=== PATIENT | male | born 1975 | race Caucasian/White ===

== ENCOUNTER 2019-10-08 08:34 | Outpatient (CLI) | payer OTHER, SELFPAY ==
[2019-10-08 09:03] LABS: Creatinine Urine 166.58 mg/dL (40-278); MALB Creatinine Ratio 4.2 mg/g (0-30)
[2019-10-08 09:04] LABS: Hemoglobin A1C 6.9 % (<5.7)
[2019-10-08 09:58] LABS: Cholesterol 169 mg/dL (0-200); HDL Direct 40 mg/dL (40-60); Thyroid Stimulating Hormone 2.41 uIU/mL (0.36-3.74)
[2019-10-08 10:03] LABS: LDL Cholesterol Calculated 31 mg/dL (<130); Triglycerides 490 mg/dL (0-150)
[2019-10-08 10:04] LABS: LDL Cholesterol Direct 40 mg/dL (0-130)
== END 2019-10-08 08:35 | disposition home or self-care (01) ==
LOC: CHSLAB 08:39
PROVIDERS: PCP Family Medicine
DX: E11.65 Type 2 diabetes mellitus with hyperglycemia (principal)
CPT/HCPCS: 36415; 80061; 82043; 83036; 83721; 84443

== ENCOUNTER 2019-10-22 07:01 | Inpatient (IN) | payer OTHER, SELFPAY ==
[2019-10-22] VITALS (11 sets, daily range): BP systolic 140–161; BP diastolic 89–103; PULSE 79–96; RESP 16–26; TEMP 35.9–36.7; O2SAT 96–100; BMI 36.0
--- NOTE | 2019-10-22 | ECHO_ITS ---
Patient Info Name: Shawn Hutchison Burden Age: 44 years : 1975 Gender: Male Ht: 74 in Wt: 280 lbs BSA: 2.62 m2 HR: 78 bpm BP: 155 / 89 mmHg Technical Quality: Fair Exam Date: 10/22/2019 1:47 PM Exam Location: [facility] Pulmonary Exam Room: 241 Patient Status: Inpatient Admit Date: 10/22/2019 Staff Ordering Physician: Liam Chanel MD Shot Bagger: Chelsy Ayala RDCS Attending Provider: Wicho Bender MD Exam Type: CA echo dop color flow w con Study Info Indications - rt side weakness facial numbness abn mri Complete two-dimensional, color flow and Doppler transthoracic echocardiogram is performed with contrast to opacify the left ventricle and to improve the deliniation of the left ventricle endocardial borders. Contrast/Agitated Saline Contrast/Ag. Saline: Definity Amount: --- ml Administered By: Chantal Curran RN Summary 1. Left ventricular chamber dimension is normal. 2. Definity contrast administered improved wall motion interpretation. 3. Left ventricular systolic function is normal, estimated at 65-70%. 4. The left ventricular diastolic function is abnormal. 5. E/e' 20 is elevated. 6. The mitral valve has mildly calcified annulus. 7. There is trace tricuspid valve regurgitation. 8. No pulmonary hypertension, estimated pulmonary arterial systolic pressure is 38 mmHg. 9. There is trace pulmonic regurgitation. Left Ventricle E/e' 20 is elevated. Definity contrast administered improved wall motion interpretation. Left ventricular chamber dimension is normal. Left ventricular systolic function is normal, estimated at 65-70%. The left ventricular diastolic function is abnormal. Right Ventricle Right ventricular chamber dimension is normal. Right ventricular systolic function is normal. Left Atria Left atrial chamber dimension is normal. Right Atria Right atrial chamber dimension is normal. Aortic Valve The aortic valve is trileaflet. There is no aortic valve stenosis. There is no aortic valve regurgitation. Pulmonic Valve There is trace pulmonic regurgitation. Mitral Valve The mitral valve has mildly calcified annulus. There is no mitral valve stenosis. There is no mitral valve regurgitation. Tricuspid Valve There is trace tricuspid valve regurgitation. No pulmonary hypertension, estimated pulmonary arterial systolic pressure is 38 mmHg. Pericardium/Pleural There is no pericardial effusion. Inferior Vena Cava Normal inferior vena cava with >50% collapse upon inspiration consistent with normal right atrial pressure, 5 mmHg. Aorta The aortic root size at the sinus of Valsalva is normal. Left Ventricular Outflow Tract Name Value Normal LVOT 2D LVOT Diameter 2.07 cm LVOT Doppler LVOT Peak Gradient 5 mmHg LVOT Mean Gradient 4 mmHg LVOT VTI 24.70 cm LVOT VTI/AV VTI Ratio 0.76 LVOT Stroke Volume 82.76 ml LVOT CO 18.51 l/min
--- NOTE | ~2019-10-22 | XR_ITS ---
MODIFIED ESOPHAGRAM HISTORY: Dysphagia. TECHNIQUE: Modified barium esophagram was performed by speech pathologist under radiologist fluorosco pic guidance. This was recorded on tape. The exam was reviewed on 10/22/2019 17:53 CDT. The DAP for this procedure was 0.95 Gycm2. Fluoroscopy time is 1.1 minutes. FINDINGS: Lateral projection of the cervical spine demonstrates normal alignment. During oral and p haryngeal stage patient is unable to control thin liquids. There is reduced laryngeal elevation, tong ue base retraction, pharyngeal squeeze with vallecular and piriform sinus residue. There is laryngeal penetration placing patient at risk for aspiration.. IMPRESSION: 1: Laryngeal penetration. No definite aspiration is identified, although the patient is at increased risk. 2: Please refer to speech pathologist report for additional detail. Reviewed, dictated and finalized at location A. IMPRESSION: 1: Laryngeal penetration. No definite aspiration is identified, although the pa tient is at increased risk. 2: Please refer to speech pathologist report for additional detail.
--- NOTE | ~2019-10-22 | MR_ITS ---
EXAMINATION: MR brain/brain stem wo/w con DATE: 10/22/2019 12:11 INDICATION: Numbness and tingling. Right-sided deficit. TECHNIQUE: Magnetic resonance imaging (MRI) of the brain and brainstem was performed without and with 20 mL MultiHance intravenous contrast. Sequences included sagittal and axial T1-weighted FSE, axial diffusion-weighted FS EPI, axial T2*-weighted GRE, axial T2-weighted FLAIR Propeller, and axial T2-we ighted Propeller. Postcontrast sequences included axial and coronal T1-weighted FSE. Apparent diffusi on coefficient (ADC) maps were created. COMPARISON: Head CT 10/22/2019 FINDINGS: There is a small area of increased T2-weighted signal intensity in the left frontal lobe wh ite matter. There is no acute ischemic infarct or intracranial hemorrhage. The ventricles are normal in size. There is mild mucosal thickening in the paranasal sinuses. The orbits are normal. The mastoi d air cells are normal. IMPRESSION: 1. Small area of increased T2-weighted signal intensity in the left frontal lobe white matter, which likely represents chronic small vessel ischemic disease. Reviewed, dictated and finalized at location A. IMPRESSION: 1. Small area of increased T2-weighted signal intensity in the left frontal lob e white matter, which likely represents chronic small vessel ischemic disease.
--- NOTE | ~2019-10-22 | CT_ITS ---
EXAMINATION: CT brain wo con INDICATION: Sided numbness and tingling, headache COMPARISON: None TECHNIQUE: Standard unenhanced head CT. The dose-length product (DLP) was 681.00 mGy-cm. The mA was a djusted according to patient size. Iterative reconstruction technique was employed. FINDINGS: There is no intracranial hemorrhage, acute infarction, or abnormal mass lesion. The ventric les are normal. There is no abnormal mass effect or midline shift. The hernández-white matter differentiat ion is normal. The basal cisterns are patent. The orbits are normal. The paranasal sinuses, mastoids and calvarium are normal. IMPRESSION: 1. No acute intracranial abnormality. As per stroke protocol, I called these results to the Emergency Department, and discussed with Dr. Nicolás Moran MD at 0743 hours on 10/22/2019. Reviewed, dictated and finalized at location A. IMPRESSION: 1. No acute intracranial abnormality. As per stroke protocol, I called these results to the Emergency Department, and discussed with Dr. Cristina Moran MD at 0743 hours on 10/22/2019.
--- NOTE | ~2019-10-22 | CT_ITS ---
EXAMINATION: CTA brain carotid DATE: 10/22/2019 15:26 INDICATION: Facial numbness. TECHNIQUE: Computed tomographic angiography (CTA) of the head was performed without and with 100 mL O mnipaque-350 intravenous contrast. CTA of the neck was performed with intravenous contrast. Automated exposure control and iterative reconstruction technique were employed. The dose-length product was 1 808.02 mGy-cm. Maximum intensity projection and volume rendered 3D-reconstructions were created by john bonilla technologist on a separate workstation. COMPARISON: Head CT at 7:25 AM FINDINGS: HEAD CTA: There is no intracranial hemorrhage, acute infarction, or abnormal intracranial mass lesion . The ventricles are normal in size. There is a mucous retention cyst in left maxillary sinus. The or bits are normal. The mastoid air cells are normal. Left vertebral artery is dominant. There is no sig nificant stenosis of basilar artery or the posterior cerebral arteries. There is no significant steno sis of the intracranial internal carotid arteries or anterior or middle cerebral arteries. Anterior c ommunicating artery is normal. The posterior communicating arteries are normal. There is no aneurysm. NECK CTA: There are no pathologically enlarged lymph nodes. There is no significant stenosis of the v ertebral arteries. There is mild plaque in the proximal internal carotid arteries. There is 0% stenos is of the proximal right internal carotid artery relative to normal distal artery lumen diameter (NAVNEET CET criteria). There is 0% stenosis of the proximal left internal carotid artery relative to normal d istal artery lumen diameter. There is moderate cervical spondylosis. IMPRESSION: 1. Normal brain. 2. No aneurysm or significant intracranial arterial stenosis. 3. 0% stenosis of the proximal internal carotid arteries relative to normal distal artery lumen diame ters (NASCET criteria). Reviewed, dictated and finalized at location A. IMPRESSION: 1. Normal brain. 2. No aneurysm or significant intracranial arterial stenosis. 3. 0% stenosis of the proximal internal carotid arteries relative to normal dis tara artery lumen diameters (NASCET criteria).
--- NOTE | ~2019-10-22 | XR_ITS ---
EXAMINATION: XR chest 1V INDICATION: Stroke, right-sided weakness TECHNIQUE: AP view of the chest is obtained. COMPARISON: 08/10/2008 FINDINGS: The lungs are free of acute opacities. There is no pleural effusion or pneumothorax. The ca rdiomediastinal silhouette is normal. The visualized osseous structures are unremarkable. IMPRESSION: 1. No acute cardiopulmonary abnormality. Reviewed, dictated and finalized at location A.
--- NOTE | ~2019-10-22 | MR_ITS ---
EXAMINATION: MR brain IAC wo/w con DATE: 10/23/2019 17:00 INDICATION: Right facial weakness. Dysarthria. TECHNIQUE: Magnetic resonance imaging (MRI) of the brain, brainstem, and internal auditory canals was performed without and with 20 mL MultiHance intravenous contrast. Sequences included sagittal and ax ial T1-weighted FSE, axial diffusion-weighted FS EPI, axial T2*-weighted GRE, axial T2-weighted FLAIR Propeller, axial T2-weighted Propeller, small rbzcl-ih-gljj coronal FIESTA, small zzxel-hi-sqxw chaim nal T1-weighted FSE, and small rvdpg-gb-dhwn axial T1-weighted SPGR. Postcontrast sequences included axial T1-weighted FSE, small hbhso-ic-moiq coronal T1-weighted FSE, and small bmikf-dt-anfs axial T1- weighted SPGR. Apparent diffusion coefficient (ADC) maps were created. COMPARISON: Brain MRI 10/22/2019 FINDINGS: There is an acute infarct in right posterolateral medulla. There is a small area of increas ed T2-weighted signal intensity in the left frontal lobe white matter. There is no intracranial hemor rhage. The ventricles are normal in size. There is mild mucosal thickening in the paranasal sinuses. The orbits are normal. The mastoid air cells are normal. IMPRESSION: 1. Acute infarct in right posterolateral medulla in the expected distribution of right posterior infe rior cerebellar artery (PICA). 2. Small area of increased T2-weighted signal intensity in the left frontal lobe white matter, which likely represents chronic small vessel ischemic disease. Reviewed, dictated and finalized at location A. IMPRESSION: 1. Acute infarct in right posterolateral medulla in the expected distribution o f right posterior inferior cerebellar artery (PICA). 2. Small area of increased T2-weighted signal intensity in the left frontal lob e white matter, which likely represents chronic small vessel ischemic disease.
--- NOTE | ~2019-10-22 | XR_ITS ---
EXAMINATION: XR chest 1V portable DATE: 10/24/2019 06:34 INDICATION: Cough. TECHNIQUE: A single frontal view of the chest was obtained. COMPARISON: Chest single view 10/22/2019 FINDINGS: There is mild atelectasis in the lower lung zones. No pleural effusion or pneumothorax. The heart size is normal. IMPRESSION: 1. Mild atelectasis in the lower lung zones. Reviewed, dictated and finalized at location A.
--- NOTE | ~2019-10-22 | XR_ITS ---
EXAMINATION: XR barium swallow modified DATE: 10/26/2019 14:27 INDICATION: Dysphagia. TECHNIQUE: The patient was given barium-containing material of multiple consistencies to swallow by raman velez speech pathologist while I performed fluoroscopy. Dose-area product was 2.488 Gy-cm2. 2.7 minutes fluoroscopy time FINDINGS: Oral Preparatory Stage: Within functional limits Oral Stage: Within functional limits Pharyngeal Phase: There is mild vallecular and piriform sinus residue. No penetration or aspiration. Cervical/Esophageal Stage: Mild cricopharyngeus muscle dysfunction IMPRESSION: Modified esophagram findings as above. Please refer to the speech [facility]. Reviewed, dictated and finalized at [facility]. Reviewed, dictated and finalized at [facility]. IMPRESSION: Modified esophagram findings as above. Please refer to the speech t herapy report for specific recommendations.
--- NOTE | 2019-10-22 07:09 | ED.NAVMDI ---
HPI - Nausea/Vomiting/Diarrhea General Chief complaint: Nausea/Vomiting/Diarrhea Stated complaint: NUMBNESS,TINGLING Time Seen by Provider: 10/22/19 07:06 Source: patient, family and EMS Mode of arrival: EMS Limitations: no limitations History of Present Illness HPI Narrative: Patient is a 44-year-old male with a history of type 2 diabetes, hypertension who presents for evaluation of right-sided weakness, slurred speech. Patient also reports he has had difficulty walking and reports he has been leaning to the right. Patient states he notices symptoms at approximately 2 in the morning when he tried to go to the bathroom. He had trouble walking, was diaphoretic and nauseated. Patient has no history of stroke in the past. At first, patient states that he wanted to ensure that this was not his diabetes, patient did recently have his metformin increased per his . Otherwise, no one sick at home. No recent sick contacts. No cough, congestion, chest pain or shortness of breath. Patient denies numbness in his lower extremities or weakness in his hands. Per , blood sugar this morning was in the 240s. Related Data Home Medications Medication Instructions Recorded Confirmed glimepiride 1 mg tablet 1 mg HS 09/09/19 10/22/19 rosuvastatin 5 mg tablet 5 mg PO HS 09/09/19 10/22/19 escitalopram oxalate 20 mg PO HS 10/22/19 10/22/19 metformin 1,000 mg PO BID 10/22/19 10/22/19 moweyykdtzyw-otx-wzyr-FA-vit K 1 tablet PO HS 10/22/19 10/22/19 [Adults Multivitamin] verapamil 180 mg PO HS 10/22/19 10/22/19 Allergies Allergy/AdvReac Type Severity Reaction Status Date / Time No Known Allergies Allergy Verified 10/22/19 10:29 Review of Systems Review of Systems: Narrative: CONSTITUTIONAL: Denies fever, chills, reports feeling sweaty EYES: Denies visual changes, redness, or discharge. ENT: Denies rhinorrhea, congestion, sore throat, or otalgia. CARDIOVASCULAR: Denies chest pain, palpitations, or edema. RESPIRATORY: Denies cough or dyspnea. GASTROINTESTINAL: Denies abdominal pain, reports nausea and vomiting GENITOURINARY: Denies dysuria or hematuria. SKIN: Denies rash or itching. MUSCULOSKELETAL: Denies back pain, joint pain, or myalgia. NEUROLOGIC: Reports history of chronic headache, reports right-sided facial numbness, weakness PMFSH Past Medical History Medical History Anxiety Diabetes HLD (hyperlipidemia) Hypertension Normal colonoscopy (~2015) Family History Family History Father Hypertension Diabetes mellitus Heart disease Hyperlipidemia Other malignant neoplasm without specification of site Grandparent Carcinoma of colon Mother Hyperlipidemia Hypertension Diabetes mellitus Heart disease Sibling Diabetes mellitus Social History Social History Smoking status: Never smoker Alcohol intake: never Substance use: never Substance use type: does not use Gender identity (if verbalized by the patient): Male Spiritual care concerns: No Exam Narrative: Exam Narrative: GENERAL: Awake, alert, diaphoretic HEAD: Normocephalic, atraumatic. EYES: PERRLA and EOMI. ENT: Nares clear, no rhinorrhea or epistaxis. Mucous membranes moist. NECK: Supple. CHEST: No respiratory distress, breathing even and non labored HEART: Regular rate, sinus rhythm ABDOMEN:Non distended, non tender EXTREMITIES: Normal range of motion. No edema. SKIN: Warm, dry, no rash. NEURO:. EOMs intact without nystagmus. Mild right-sided facial droop noted. It does spare the forehead. Grimace droops to the right. Intact sensation in face. Hearing intact bilaterally. Shoulder shrug intact. Strength 5/5 bilateral upper extremities. Strength 5/5 bilateral lower extremities. Reflexes 2+ patellar. Heel to thomas intact bilaterally, slowed response on the right. Ambulatory exam defe
--- NOTE | 2019-10-22 07:19 | ECG_ITS ---
Measurements Intervals [place] Rate: 72 P: 42 WA: 192 QRS: 18 QRSD: 90 T: 30 QT: 424 QTc: 466 Interpretive Statements SINUS RHYTHM WITH SINUS ARRHYTHMIA ST ELEVATION INI ANTEROLATERAL LEADS, PROBABLY EARLY REPOLARIZATION BASELINE ARTIFACT- I, II, III, AVR, AVL, AVF, V1 BORDERLINE ECG Electronically Signed On 10-22-2019 11:10:13 CDT by Lucho Tavarez D.O.
[2019-10-22 07:52] LABS: Alveolar/Arterial O2 Gradient 17.7 mmHg; Base Excess ABG -0.6 mEq/l (+/-2.0); Carboxyhemoglobin 0.9 % THb (0-2.0); Fractional Inspired Oxygen 21 %; HCO3 ABG 24.5 mEq/l (22.0-26.0); Methemoglobin ABG 0.3 %THb (0-1.5); Oxygen Saturation ABG 95.9 % (95.0-100.0); Oxyhemoglobin 95.1 % THb (90.0-100.0); PCO2 ABG 41.8 mmHg (35.0-45.0); Reduced Hemoglobin 3.7 %THb (0-5.0); Total Hemoglobin 15.7 g/dL (12.0-18.0); pH ABG 7.385 (7.350-7.450)
[2019-10-22 07:53] LABS: Device ROOM AIR; Modified Allen's Test Pass; Site Drawn RIGHT RADIAL
[2019-10-22 07:54] LABS: Glucose Point of Care 228 (65-105)
[2019-10-22] MEDS: SODIUM CHLORIDE 0.9% IV 1,000 ML 999 ML IV CONT ×2 (08:05→08:12)
[2019-10-22] MEDS: ONDANSETRON INJ 4 MG/2 ML VIAL IV PUSH (08:05)
[2019-10-22 08:08] LABS: Basophils Percent Auto 0.5 % (0.2-1.2); Eosinophils Absolute Auto 0.1 K/mm3 (0-0.3); Eosinophils Percent Auto 0.6 % (0-4.4); Hematocrit 42.5 % (42.0-52.0); Hemoglobin 15.4 g/dL (14.0-18.0); Immature Granulocyte Absolute 0.03 K/mm3 (0.00-0.031); Immature Granulocyte Percent A 0.3 % (0-0.5); Lymphocytes Absolute Auto 2.68 K/mm3 (0.9-3.2); Lymphocytes Percent Auto 30.7 % (18.3-44.2); Mean Corpuscular HGB Conc 36.2 g/dl (32-36); Mean Corpuscular Hemoglobin 32.2 pg (26-34); Mean Corpuscular Volume 88.9 fl (80-100); Mean Platelet Volume 9.5 fl (7.4-10.4); Monocytes Absolute Auto 0.5 K/mm3 (0.1-0.6); Neutrophils Absolute Auto 5.4 K/mm3 (1.3-6.7); Neutrophils Percent Auto 61.9 % (45.5-73.1); Platelet Count Result 256 k/mm3 (150-375); Red Blood Count 4.78 M/mm3 (4.6-6.20); Red Cell Distribution Width 11.3 % (11.5-14.5); White Blood Count 8.7 K/mm3 (4.5-10.0)
[2019-10-22 08:21] LABS: Alanine Aminotransferase 32 U/L (4-50); Albumin Level 4.7 g/dL (3.5-5.1); Alkaline Phosphatase 116 U/L (38-126); Aspartate Amino Transferase 31 U/L (17-59); Bilirubin,Total 0.5 mg/dL (0.2-1.3); Blood Urea Nitrogen 11 mg/dL (9-20); Calcium 9.2 mg/dL (8.4-10.2); Carbon Dioxide 25 mmol/L (22-30); Chloride 102 mmol/L (98-107); Estimated CRCL calculation 227 ml/min; Estimated Glomerular Filt Rate > 60; Glucose 228 mg/dL (75-110); Magnesium 1.9 mg/dL (1.6-2.3); Phosphorus 2.3 mg/dL (2.5-4.5); Potassium 3.7 mmol/L (3.4-5.0); Sodium 137 mmol/L (137-145)
[2019-10-22 08:25] LABS: Beta-Hydroxybutyrate/Acetoacetate 0.21 mmol/L (0.02-0.27)
[2019-10-22 08:31] LABS: INR 0.9; Prothrombin Time 11.8 Seconds (11.1-14.7)
[2019-10-22 08:32] LABS: Partial Thromboplastin Time 23.9 SECONDS (22.3-36.8)
[2019-10-22 08:32] LABS: Troponin I < 0.012 ng/mL (0.000-0.034)
--- NOTE | 2019-10-22 09:06 | PC.NURSE ---
pt unable to void x 2 attempts. RN explained straight cath, pt accepting at this time.
[2019-10-22] MEDS: ASPIRIN 81 MG CHEWABLE TABLET 324 MG PO (09:29)
[2019-10-22 09:48] LABS: Add Urine Microscopic? YES; Appearance Urine Clear (Clear); Bilirubin Urine Negative (Negative); Blood Urine Negative (Negative); Color Urine Straw (Yellow); Glucose Urine UA 3+ mg/dL (Negative); Ketones Urine Trace mg/dL (Negative); Leukocyte Esterase Ur Negative LEU/UL (Negative); Mucus Urine Rare /lpf; Nitrate Urine Negative (Negative); Protein Urine Negative (Negative); RBC Urine 0-2 /hpf (0-2); Specific Grav Ur 1.018 (1.001-1.035); Urobilinogen Urine Negative mg/dL (<2.0); WBC Urine 0-3 /hpf
--- NOTE | 2019-10-22 09:48 | PC.NURSE ---
rn at bedside for straight cath.
--- NOTE | 2019-10-22 10:03 | PC.NURSE ---
RN report given to Sam Parisi.
--- NOTE | 2019-10-22 10:24 | ADMGEN ---
This patient, Shawn Burden, was admitted to Medical Room 241-. Patient/family oriented to hospital policies and general routines including ID bracelet, bed and alarms, visiting hours, pain management, procedures, bathroom and other care routines, personal items, smoking policy, room service/diet, and visiting hours. Valuables list has been completed. Information on how to activate the Rapid Response Team has been discussed. Patient/Family are encouraged to report perceived risks to care and to ask questions if they do not understand what they are told or what they should do.
[2019-10-22] MEDS: LACTATED RINGERS 1,000 ML 125 ML IV CONT ×2 (10:50→20:59)
--- NOTE | 2019-10-22 11:17 | PC.NURSE ---
Patient to MRI per stretcher. IV saline locked. Consent signed and on chart.
--- NOTE | 2019-10-22 12:01 | PM.IMHP ---
H&P: HPI History of Present Illness Chief complaint: right sided dysarthria,right sideded facial droop Narrative: Shawn Burden is a 44yo male with a history of DM and HTN here for evaluation of right-sided symptoms and slurred speech. Patient has hx of diabetes diagnosis in November with A1c of 13. Was on metformin and glipizide but glipizide had been decreased because A1c dropped to 5 in February[address] He sees Dr[address] Negro for his diabetes in [place]. Last A1c was 6.9 in September. Metformin was increased a few days prior to this admission. He also has hypertriglyceridemia last value was 490. Patient also has a history of chronic migraines. There is concern this may be related to anxiety. He was started on Lexapro about 5 years ago and his has noted that his headaches have improved over that time period. Patient has not seen Neurology for his headaches. On patient did have a headache yesterday evening. He was able to attend a ball game and got home around 11:00 p.m.. He stayed up for few hours after getting home to decorate his dtr birthday cake. His went to bed. Patient slept on the couch. Woke up around 2:00 a.m. felt right facial numbness. He did not think much of this and returned to bed. Around 6:00 a.m. his noted that the patient looked not well. When he stood he was ?drifting? to the right side. He had difficulty walking. She noted slurred speech. He denies any weakness in his arms or legs but more of discoordination. He continued to have the right sided facial numbness. Right facial droop also noted by the . 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 Because of the symptoms patient brought to the emergency room for evaluation. Glucose normal at home In the emergency room, patient's blood pressure was 159/103. He is afebrile. CT of the brain was normal. Lab workup also was within normal limits. EKG reviewed showing ST elevation most likely early repoleraization. Was given aspirin, IV fluids and Zofran. He was admitted for further care. On my 1st visit to the room patient was down for an MRI. I talked with his who provided some of the above-mentioned history. Return to the room and spoke with the patient. He states that he was leaning to the right. Denies any vision changes. He denies any odynophagia or dysphagia but since admission, has noted the patient does appear to be choking with oral intake. Patient did have some nausea vomiting but no diarrhea or abdominal pain. Nausea has resolved. About a week ago his yard was sprayed from mosquitos. He was out in the yard short time after that and developed a splotchy rash in his lower extremities and felt burning sensation in his skin. He took a shower. His rash resolved. No for symptoms up until today. He denies any numbness or tingling in his hands or feet. With exam, he was noted to have nystagmus. He does state that with the exam he does see double vision in left lateral view. No tick bites recently Review of Systems Review of Systems: All systems reviewed & are unremarkable except as noted in HPI and below PMFSH Past Medical History Medical History (Updated 10/23/19 @ 15:01 by Pedro Rutledge MD) Anxiety Diabetes HLD (hyperlipidemia) Hypertension Normal colonoscopy (~2015) SERENA (obstructive sleep apnea) noncomplaint Family History Family History Father Hypertension Diabetes mellitus Heart disease Hyperlipidemia Other malignant neoplasm without specification of site Grandparent Carcinoma of colon Mother Hyperlipidemia Hypertension Diabetes mellitus Heart disease Sibling Diabetes mellitus Social History Social History (Updated 10/22/19 @ 15:27 by Wicho Bender MD) Social History: Patient is lifelong nonsmoker. No drug use. Rare alcohol use. He is a full code. Nominates his to be the individual would make medical decisions for him if he is not able. Smoking status: Never sm
--- NOTE | 2019-10-22 12:20 | PC.NURSE ---
Patient return from MRI.
[2019-10-22 12:36] LABS: Glucose Point of Care 173 (65-105)
[2019-10-22] MEDS: PERFLUTREN LIPID MICROSPHERES 1.5 ML VIAL DILUTED TO 10 ML TOTAL VOLUME IV PUSH (14:20)
[2019-10-22] MEDS: ENOXAPARIN 40 MG/0.4 ML SYRINGE SUB-Q (16:32)
[2019-10-22 18:02] LABS: Glucose Point of Care 145 (65-105)
--- NOTE | 2019-10-22 18:06 | CONS_ITS ---
DATE OF CONSULTATION: 10/22/2019 HISTORY OF PRESENT ILLNESS: A 44-year-old right-handed male has been admitted to [facility] through the emergency room for the complaints of right-sided dysarthria with facial droop. In addition to ongoing history of: 1. Type 2 diabetes mellitus. 2. Hypertension. 3. Hyperlipidemia. 4. Anxiety. 5. With no history of smoking or drinking alcohol. MEDICATIONS: At the time of admission to the hospital, the patient was receivin. Glimepiride 1 mg at night. 2. Rosuvastatin 5 mg at night. 3. Escitalopram 20 mg at night. 4. Metformin 1000 twice a day. 5. Multivitamin with iron 1 tablet at night. 6. Verapamil 180 mg at night. ALLERGIES: HISTORY OF NOT ALLERGIC TO ANY SPECIFIC MEDICATION. PHYSICAL EXAMINATION: ABDOMEN: Soft with no organomegaly. NEUROLOGICAL: He was awake, alert, cooperative, in no obvious acute distress. Speech was not dysphasic, no dysarthric, no dysphonic. Pupils round, regular, very mildly anisocoric. Extraocular movements full with no evidence of nystagmus. Facial sensation intact. Face symmetrical. Tongue midline. Uvula midline. Motor examination revealed him to have drift of the right upper extremity. His reflexes being 1 to 2+ at the biceps, triceps, knees, and ankles. Plantar response was downgoing. There was no evidence of gross cerebellar deficit on bhgbka-ix-muzj-to-finger. LABORATORY STUDIES: Evaluation up until now included CBC, which revealed WBC of 8.7, hemoglobin 15.4, and platelet count of 256. INR of 0.9 with APTT 23.9. ABG is normal. Basic metabolic panel normal with creatinine of 0.50, glucose 228. Hemoglobin A1c 6.9 with phosphorus 2.3. Triglyceride elevated 490 and 3+ glycosuria. Had an MRI of the brain, which was just reported, which revealed him to have a small area of T2 signal intensity in the left frontal lobe white matter, which represent the chronic small-vessel ischemic change according to the radiologist. Chest x-ray is negative and the head CT scan, which was done prior to the MRI is also normal. IMPRESSION: Most likely TIA. At this stage, he has subtle drift of the right upper extremity with that particular thing has anything to do with a small area of signal intensity in the left frontal lobe is unclear, but he is being treated for the TIA versus the reversible ischemic neurological deficit. At this stage, he is receiving the aspirin 81 mg daily, which will I add to Plavix 75 mg daily as well for the next 3 weeks and in the meantime, other medication will be continued as such. We will also obtain the CTA, if he has not had that done last time and also the echocardiogram. LANE MERCADO M.D. BUSINESS OFFICE TECHNICIAN BUSINESS OFFICE TECHNICIAN D Jeri MT: Stevie
[2019-10-22 23:58] LABS: Glucose Point of Care 126 (65-105)
[2019-10-23] VITALS (14 sets, daily range): BP systolic 132–164; BP diastolic 84–110; PULSE 74–91; RESP 12–21; TEMP 36.2–36.9; O2SAT 97–100
--- NOTE | 2019-10-23 | ECHO_ITS ---
Patient Info Name: Shawn Hutchison Burden Age: 44 years : 1975 Gender: Male Ht: 74 in Wt: 281 lbs BSA: 2.62 m2 HR: 85 bpm BP: 150 / 98 mmHg Heart Rhythm: Sinus Rhythm Technical Quality: Good Exam Date: 10/23/2019 2:02 PM Exam Location: [facility] Patient Status: Inpatient Admit Date: 10/22/2019 Staff Ordering Physician: Wicho Bender MD Co Director: Taras Bryant RDCS Attending Provider: Wicho Bender MD Exam Type: CA echo limited w bubble study Study Info Indications 436.0 - CVA Limited two-dimensional transthoracic echocardiogram is performed with agitated saline. Contrast/Agitated Saline Contrast/Ag. Saline: Agitated Saline Amount: 18.00 ml Administered By: Chantal Curran RN Existing IV Access: Yes History/Risk Factors Stroke, HTN, DM, R-sided weakness. Summary 1. Limited echo to assess atrial septum. 2. Agitated saline injection with and without valsalva maneuver opacified right sided cardiac chambers without shunting to left sided cardiac chambers. Therefore no patent forament ovale or atrial septal defect based on these findings. 3. Intact interatrial septum visualized by 2D and agitated saline imaging. Atrial Septum Limited echo to assess atrial septum. Agitated saline injection with and without valsalva maneuver opacified right sided cardiac chambers without shunting to left sided cardiac chambers. Therefore no patent forament ovale or atrial septal defect based on these findings. Intact interatrial septum visualized by 2D and agitated saline imaging. Report Signatures
[2019-10-23] MEDS: ONDANSETRON INJ 4 MG/2 ML VIAL IV PUSH (02:44)
[2019-10-23] MEDS: LACTATED RINGERS 1,000 ML 125 ML IV CONT ×2 (04:35→14:58)
[2019-10-23 05:29] LABS: Alanine Aminotransferase 28 U/L (4-50); Albumin Level 4.2 g/dL (3.5-5.1); Alkaline Phosphatase 71 U/L (38-126); Aspartate Amino Transferase 26 U/L (17-59); Bilirubin,Total 0.6 mg/dL (0.2-1.3); Blood Urea Nitrogen 12 mg/dL (9-20); Calcium 8.8 mg/dL (8.4-10.2); Carbon Dioxide 26 mmol/L (22-30); Chloride 100 mmol/L (98-107); Estimated CRCL calculation 228 ml/min; Estimated Glomerular Filt Rate > 60; Glucose 169 mg/dL (75-110); Sodium 134 mmol/L (137-145)
[2019-10-23 06:33] LABS: Thyroid Stimulating Hormone Reflex 0.983 uIU/mL (0.465-4.68)
[2019-10-23 06:43] LABS: Glucose Point of Care 150 (65-105)
--- NOTE | 2019-10-23 09:22 | PCSTNOTE ---
Please refer to the Modified Barium Swallow Evaluation in the EMR.
--- NOTE | 2019-10-23 09:22 | PCSTNOTE ---
Communication evaluation completed and speech/language skills are judged to be within normal limits. Patient complains of double vision and therefore reading and writing were not addressed at this time.
[2019-10-23] MEDS: ENOXAPARIN 40 MG/0.4 ML SYRINGE SUB-Q ×2 (09:55→20:14)
[2019-10-23] MEDS: ASPIRIN 300 MG SUPPOSITORY RECTAL (09:55)
[2019-10-23 12:41] LABS: Glucose Point of Care 125 (65-105)
--- NOTE | 2019-10-23 14:58 | WPDNEUROPN ---
Progress Note: A&P Assessment and Plan (1) Dysphagia: Code(s): R13.10 - Dysphagia, unspecified Status: Acute (2) SERENA (obstructive sleep apnea): Code(s): G47.33 - Obstructive sleep apnea (adult) (pediatric) Status: Acute (3) Dysarthria: Code(s): R47.1 - Dysarthria and anarthria Status: Acute (4) HLD (hyperlipidemia): Qualifiers: Hyperlipidemia type: unspecified Qualified Code(s): E78.5 - Hyperlipidemia, unspecified Code(s): E78.5 - Hyperlipidemia, unspecified Status: Acute (5) Anxiety: Code(s): F41.9 - Anxiety disorder, unspecified Status: Acute (6) Diabetes: Qualifiers: Diabetes mellitus type: type 2 Diabetes mellitus prison insulin use: without termite control 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 Bender and also his in quite a bit of a detail all option risk in the benefits were detailed to her we will move him to the IMU for close monitoring with frequent neuro checks and repeat MRI of the brain with and without contrast and continue with the aspirin Lovenox as he is unable to swallow and we cannot give him Plavix I told his if she is uncomfortable will be more than happy to transfer her or transfer him to a facility she prefers to at this point both and agree to be monitored here in a close monitoring setting Review of Systems Review of Systems: All systems reviewed & are unremarkable except as noted in HPI and below Exam Const: General: comfortable and no acute distress HENMT: General nose exam: Normal nares present Mouth: Yes moist mucous membranes Eyes: General: appearance normal, both eyes and all related structures Neck: Neck: supple and no JVD Resp: Effort & Inspection: normal respiratory effort Auscultation: clear to auscultation bilaterally Cardio: Rate: regular rate Rhythm: regular rhythm GI: Auscultation: normal bowel sounds Skin: General skin exam: normal color and no rashes or lesions noted Neuro: Other: the patient is awake and alert well oriented time place person there is no aphasia but he is clearly dysarthric dysphonia and has gait ataxia and Romberg test is positive Extrem: General: normal to inspection Psych: Mental Status: mental status grossly normal Objective Data Vital Signs Vital Signs: Vital Signs - 24 hr 10/22/19 16:00 10/22/19 20:00 10/22/19 22:00 Temperature 36.7 C Pulse Rate 96 83 82 Respiratory Rate 21 H Blood Pressure 155/90 H Pulse Oximetry 100 10/23/19 00:00 10/23/19 04:00 10/23/19 06:00 Temperature 36.2 C L Pulse Rate 77 80 86 Respiratory Rate 21 H Blood Pressure 144/84 H Pulse Oximetry 100 10/23/19 08:00 10/23/19 12:00 10/23/19 14:00 Temperature 36.2 C L Pulse Rate 78 88 84 Respiratory Rate 18 Blood Pressure 150/110 H Pulse Oximetry 99 10/23/19 14:34 Temperature Pulse Rate Respiratory Rate Blood Pressure 164/100 H Pulse Oximetry Intake/Output Intake/Output: Intake & Output 10/20/19 10/21/19 10/22/19 10/23/19 23:59 23:59 23:59 23:59 Intake Total 3000 1000 Output Total 1300 925 Balance 1700 75 Meds/Results Medications: Active Medications Generic Name Dose Route Start Last Admin Trade Name Freq PRN Reason Stop Dose Admin Acetaminophen 650 mg 10/22/19 09:19 Tylenol Tablet PO Q4H PRN Mild Pain (1-3) or Fever
--- NOTE | 2019-10-23 15:05 | PM.IMPN ---
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 Still could be MG. MRI of the brain 10/21 showing small area of increased T2-weighted signal intensity in the left frontal lobe white matter, which likely represents chronic small vessel ischemic disease. CTA of the head/neck showing no acute findings. Echo showing EF 70% with abnormal diastolic dysfunction. Bubble study showing intact septum. Discussed with Dr Rutledge. Plan to repeat MRI brain. Discussed with radiology and appropriate imaging was performed to better image the brainstem. Repeat MRI brain showing acute infarct in right posterolateral medulla in the expected distribution of right posterior inferior cerebellar artery (PICA). Continue rectal ASA. Discussed with patient and family. All questions were answered (2) Dysphagia: Code(s): R13.10 - Dysphagia, unspecified Status: Acute Assessment and Plan: MBS 10/21 showing laryngeal penetration but no definite aspiration is identified, although the patient is at increased risk. Patient seen by ST and currently NPO due to dysphagia. Speech therapy working with patient. May need NGT feeding. (3) Facial droop: Code(s): R29.810 - Facial weakness Status: Acute Assessment and Plan: As above (4) Dysarthria: Code(s): R47.1 - Dysarthria and anarthria Status: Acute Assessment and Plan: Patient with more bulbar symptoms. As above. (5) Hypertension: Qualifiers: Hypertension type: essential hypertension Qualified Code(s): I10 - Essential (primary) hypertension Code(s): I10 - Essential (primary) hypertension Status: Acute Assessment and Plan: BP reviewed on 10/23/19. BP elevated but allowing for permissive HTN. Home verapamil on hold. Hydralazine available as needed. (6) Diabetes: Qualifiers: Diabetes mellitus complication status: without complication Diabetes mellitus [facility] insulin use: without [facility] use Diabetes mellitus type: type 2 Qualified Code(s): E11.9 - Type 2 diabetes mellitus without complications Code(s): E11.9 - Type 2 diabetes mellitus without complications Status: Acute Assessment and Plan: A1c 6.9 recently. Continue Accu-Cheks with sliding scale protocol. Hypoglycemia protocol available as needed. (7) Anxiety: Code(s): F41.9 - Anxiety disorder, unspecified Status: Acute Assessment and Plan: Mood stable. Lexapro on hold due to dysphagia. (8) HLD (hyperlipidemia): Qualifiers: Hyperlipidemia type: unspecified Qualified Code(s): E78.5 - Hyperlipidemia, unspecified Code(s): E78.5 - Hyperlipidemia, unspecified Status: Acute Assessment and Plan: Patient mostly with hypertriglyceridemia. This is being monitored by his doctor. (9) SERENA (obstructive sleep apnea): Code(s): G47.33 - Obstructive sleep apnea (adult) (pediatric) Status: Acute Assessment and Plan: Noncompliant with treatment. Subjective Date/time seen: 10/23/19 15:05 Interval history: 44yo male with DM and HTN here for dysphagia, dysphonia and dysarthria concerning for brainstem CVA. Date of service 10/23/19: Persistent cough productive of clear sputum. Has suction at beds. No CP or SOB. Still with diplopia. Minimal gag with suction (he was educated about not doing deep suction). Exam Narrative: Exam Narrative: AF 164/100 84 18 99% Gen -NARD HEENT - mild right facial droop, mild right depressed palate. roving eye movements. PERRL. EOMI intact. Chest - scattered rhonchi with transmitted upper airway breath sounds, nml RR CV - RRR S1/S2. Tele showing no dysrhythmias Abd - So
--- NOTE | 2019-10-23 15:07 | PC.NURSE ---
1300 Pt taking shower with assistance, sitting in shower chair. Pt stated he was bending forward and washing himself and began vomiting. stated his face was very flushed and he became hot. Pt quickly assessed, dressed, and returned to bed. Pt stated he was feeling better once returned to bed. Oral care performed.
[2019-10-23 19:05] LABS: Glucose Point of Care 132 (65-105)
--- NOTE | 2019-10-23 19:24 | PC.NURSE ---
This patient, Shawn Burden, was received from [ ] on 10/23/19 at 1750 . Personal belongings list checked and signed. Patient/family oriented to unit policies and routines
[2019-10-23 23:51] LABS: Glucose Point of Care 150 (65-105)
[2019-10-24] VITALS (14 sets, daily range): BP systolic 142–157; BP diastolic 91–103; PULSE 72–94; RESP 16–18; TEMP 35.9–36.9; O2SAT 97–100
[2019-10-24] MEDS: LACTATED RINGERS 1,000 ML 125 ML IV CONT ×4 (00:12→23:46)
[2019-10-24 05:53] LABS: Glucose Point of Care 134 (65-105)
--- NOTE | 2019-10-24 09:54 | PM.IMPN ---
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 MRI of the brain 10/21 showing small area of increased T2-weighted signal intensity in the left frontal lobe white matter, which likely represents chronic small vessel ischemic disease. CTA of the head/neck showing no acute findings. Echo showing EF 70% with abnormal diastolic dysfunction. Bubble study showing intact septum. Repeat MRI brain showing acute infarct in right posterolateral medulla in the expected distribution of right posterior inferior cerebellar artery (PICA). Continue rectal ASA. Discussed with patient and family. TRC consult. Continue PT/OT/ST. (2) Dysphagia: Code(s): R13.10 - Dysphagia, unspecified Status: Acute Assessment and Plan: MBS 10/21 showing laryngeal penetration but no definite aspiration is identified, although the patient is at increased risk. Patient seen by ST and currently NPO due to dysphagia. Speech therapy working with patient. May need NGT feeding. (3) Facial droop: Code(s): R29.810 - Facial weakness Status: Acute Assessment and Plan: As above (4) Dysarthria: Code(s): R47.1 - Dysarthria and anarthria Status: Acute Assessment and Plan: Patient with more bulbar symptoms. As above. (5) Hypertension: Qualifiers: Hypertension type: essential hypertension Qualified Code(s): I10 - Essential (primary) hypertension Code(s): I10 - Essential (primary) hypertension Status: Acute Assessment and Plan: BP reviewed on 10/24/19. BP mildly elevated but allowing for permissive HTN. Home verapamil on hold. Hydralazine available as needed. (6) Diabetes: Qualifiers: Diabetes mellitus type: type 2 Diabetes mellitus meat stuffer insulin use: without senior care use Diabetes mellitus complication status: without complication Qualified Code(s): E11.9 - Type 2 diabetes mellitus without complications Code(s): E11.9 - Type 2 diabetes mellitus without complications Status: Acute Assessment and Plan: A1c 6.9 recently. Continue Accu-Cheks with sliding scale protocol. Hypoglycemia protocol available as needed. (7) Anxiety: Code(s): F41.9 - Anxiety disorder, unspecified Status: Acute Assessment and Plan: Mood stable. Lexapro on hold due to dysphagia. (8) HLD (hyperlipidemia): Qualifiers: Hyperlipidemia type: unspecified Qualified Code(s): E78.5 - Hyperlipidemia, unspecified Code(s): E78.5 - Hyperlipidemia, unspecified Status: Acute Assessment and Plan: Patient mostly with hypertriglyceridemia. This is being monitored by his doctor. (9) SERENA (obstructive sleep apnea): Code(s): G47.33 - Obstructive sleep apnea (adult) (pediatric) Status: Acute Assessment and Plan: Noncompliant with treatment. Subjective Date/time seen: 10/24/19 09:54 Interval history: 44yo male with DM and HTN here for dysphagia, dysphonia and dysarthria concerning for brainstem CVA. Date of service 10/24/19: No nausea or vomiting. No CP or palpations. No SOB. Cough and secretins are better. Still with diplopia. Exam Narrative: Exam Narrative: AF 157/98 76 16 100% ra Gen -NARD HEENT - very mild right facial droop, roving eye movements but improved, EOMI intact. Chest - CTA bilaterally, nml RR CV - RRR S1/S2. Tele showing no dysrhythmias Abd - Soft, NT/ND, Positive BS Ext - No pedal edema. Neuro - Alert and oriented. No focal weakness. Tracking is better Psych - Nml mood and affect Skin - Warm and dry. Objective Data Vital Signs Vital Signs: Vital Signs - 24 hr 10/23/19 12:00 10/23/19 13:30 10/23/19 14:00 Temper
[2019-10-24] MEDS: ASPIRIN 300 MG SUPPOSITORY RECTAL (10:27)
[2019-10-24] MEDS: ENOXAPARIN 40 MG/0.4 ML SYRINGE SUB-Q ×2 (10:27→21:09)
[2019-10-24 12:31] LABS: Glucose Point of Care 114 (65-105)
--- NOTE | 2019-10-24 14:33 | WPDNEUROPN ---
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, unspecified Status: Acute (2) Dysphagia: Code(s): R13.10 - Dysphagia, unspecified Status: Acute (3) SERENA (obstructive sleep apnea): Code(s): G47.33 - Obstructive sleep apnea (adult) (pediatric) Status: Acute (4) Dysarthria: Code(s): R47.1 - Dysarthria and anarthria Status: Acute (5) HLD (hyperlipidemia): Qualifiers: Hyperlipidemia type: unspecified Qualified Code(s): E78.5 - Hyperlipidemia, unspecified Code(s): E78.5 - Hyperlipidemia, unspecified Status: Acute (6) Anxiety: Code(s): F41.9 - Anxiety disorder, unspecified Status: Acute (7) Diabetes: Qualifiers: Diabetes mellitus type: type 2 Diabetes mellitus shelter insulin use: without long term care administrator use Diabetes mellitus complication status: without complication Qualified Code(s): E11.9 - Type 2 diabetes mellitus without complications Code(s): E11.9 - Type 2 diabetes mellitus without complications Status: Acute (8) Hypertension: Qualifiers: Hypertension type: essential hypertension Qualified Code(s): I10 - Essential (primary) hypertension Code(s): I10 - Essential (primary) hypertension Status: Acute Additional Plan discussed with his and the patient all option risk in the benefits were detailed we will continue the present medical management he would most likely need at least for the short brief time and nasogastric tube feeding and I will defer it to the hospitalist for that at that point we can certainly start the Plavix along with the rectal aspirin he is receiving Review of Systems Review of Systems: All systems reviewed & are unremarkable except as noted in HPI and below Exam Const: General: comfortable and no acute distress HENMT: General nose exam: Normal nares present Mouth: Yes moist mucous membranes Eyes: General: appearance normal, both eyes and all related structures Neck: Neck: supple and no JVD Resp: Effort & Inspection: normal respiratory effort Auscultation: clear to auscultation bilaterally Cardio: Rate: regular rate Rhythm: regular rhythm GI: Auscultation: normal bowel sounds Skin: General skin exam: normal color and no rashes or lesions noted Neuro: Other: patient is awake alert well oriented follows all commands he has dysphagia dysphonia and dysarthria right-sided sensory symptoms and gait ataxia related to the medullary infarct Extrem: General: normal to inspection Psych: Mental Status: mental status grossly normal Objective Data Vital Signs Vital Signs: Vital Signs - 24 hr 10/23/19 14:34 10/23/19 16:00 10/23/19 17:22 Temperature 36.6 C Pulse Rate 91 86 Respiratory Rate 12 Blood Pressure 164/100 H 149/93 H Pulse Oximetry 99 10/23/19 20:00 10/23/19 20:56 10/23/19 22:00 Temperature 36.9 C Pulse Rate 85 85 75 Respiratory Rate 18 18 Blood Pressure 132/89 Pulse Oximetry 99 99 10/23/19 23:49 10/24/19 00:00 10/24/19 00:57 Temperature 36.9 C Pulse Rate 74 74 80 Respiratory Rate 18 18 Blood Pressure 143/103 H Pulse Oximetry 100 100 10/24/19 01:56 10/24/19 04:00 10/24/19 06:00 Temperature 36.3 C L Pulse Rate 72 94 85 Respiratory Rate 18 Blood Pressure 151/96 H Pulse Oximetry 100 10/24/19 08:00 10/24/19 10:00 10/24/19 12:00 Temperature 36.1 C L 36.3 C L Pulse Rate 79 72 78 Respiratory Rate 16 18 Blood Pressure 157/98 H 156/91 H Pulse Oximetry 100 98 Intake/Output Intake/Output: Intake & Output 10/21/19 10/22/19 10/23/19 10/24/19 23:59 23:59 23:59 23:59 Intake Total 3000 3100 872 Output Total 1300 1325 1345 Balance 1700 1770 -384 Meds/Results Medications: Active Medications Generic Name Dose Route Start Last Admin Trade Name Freq PRN Reason Stop Dose Admin Acetaminophen 650 mg 10/22/19 09:19 Tyle
[2019-10-24 18:22] LABS: Glucose Point of Care 100 (65-105)
[2019-10-24 23:53] LABS: Glucose Point of Care 123 (65-105)
[2019-10-25] VITALS (12 sets, daily range): BP systolic 143–165; BP diastolic 50–99; PULSE 69–88; RESP 16–20; TEMP 36.2–36.8; O2SAT 100
[2019-10-25 05:02] LABS: Hematocrit 40.3 % (42.0-52.0); Hemoglobin 14.2 g/dL (14.0-18.0); Mean Corpuscular HGB Conc 35.2 g/dl (32-36); Mean Corpuscular Hemoglobin 32.4 pg (26-34); Mean Platelet Volume 9.5 fl (7.4-10.4); Platelet Count Result 236 k/mm3 (150-375); Red Blood Count 4.38 M/mm3 (4.6-6.20); Red Cell Distribution Width 11.5 % (11.5-14.5); White Blood Count 8.3 K/mm3 (4.5-10.0)
[2019-10-25 05:18] LABS: Albumin Level 4.1 g/dL (3.5-5.1); Blood Urea Nitrogen 13 mg/dL (9-20); Calcium 8.9 mg/dL (8.4-10.2); Carbon Dioxide 28 mmol/L (22-30); Chloride 98 mmol/L (98-107); Estimated CRCL calculation 192 ml/min; Estimated Glomerular Filt Rate > 60; Glucose 131 mg/dL (75-110); Phosphorus 2.7 mg/dL (2.5-4.5); Potassium 3.3 mmol/L (3.4-5.0); Sodium 133 mmol/L (137-145)
[2019-10-25 06:30] LABS: Glucose Point of Care 102 (65-105)
[2019-10-25] MEDS: LACTATED RINGERS 1,000 ML 125 ML IV CONT (08:00)
[2019-10-25] MEDS: ENOXAPARIN 40 MG/0.4 ML SYRINGE SUB-Q ×2 (08:01→20:07)
[2019-10-25] MEDS: ASPIRIN 300 MG SUPPOSITORY RECTAL (08:01)
--- NOTE | 2019-10-25 11:32 | PCSTNOTE ---
Speech therapy spoke with nursing staff this morning regarding pt.'s dysphagia and need for a repeat modified barium swallow study this week. Pt. participated in ST on 10/24/19 and tolerated small open cup sips of thin liquids without displaying any overt s/s of aspiration; however, silent aspiration cannot be ruled out at bedside. Upon initial MBS on 10/22/19, pt. was unable to trigger a pharyngeal swallow. Swallow on 10/24/19 appeared delayed (2-3 seconds) and weak, with multiple swallows utilized indicating possible laryngeal residue. Swallow progress was discussed with pt. during tx, as well as the possibility of a repeat MBS to advance pt. from NPO status. Pt. was indicated understanding and agreement with this plan.
[2019-10-25 12:05] LABS: Glucose Point of Care 103 (65-105)
--- NOTE | 2019-10-25 12:08 | PM.IMPN ---
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 MRI of the brain 10/21 showing small area of increased T2-weighted signal intensity in the left frontal lobe white matter, which likely represents chronic small vessel ischemic disease. CTA of the head/neck showing no acute findings. Echo showing EF 70% with abnormal diastolic dysfunction. Bubble study showing intact septum. Repeat MRI brain 10/22 showing acute infarct in right posterolateral medulla in the expected distribution of right posterior inferior cerebellar artery (PICA). Continue rectal ASA. TRC consult. Continue PT/OT/ST. (2) Dysphagia: Code(s): R13.10 - Dysphagia, unspecified Status: Acute Assessment and Plan: MBS 10/21 showing laryngeal penetration but no definite aspiration is identified, although the patient is at increased risk. Patient seen by ST and currently NPO due to dysphagia. Speech therapy working with patient. Discussed with speech therapy. She feels that patient's swallowing ability has improved but still weak and recommends a modified barium swallow tomorrow. Will start TPN overnight in hopes of transitioning to oral intake tomorrow after swallow study. (3) Facial droop: Code(s): R29.810 - Facial weakness Status: Acute Assessment and Plan: As above. (4) Dysarthria: Code(s): R47.1 - Dysarthria and anarthria Status: Acute Assessment and Plan: Patient with more bulbar symptoms. As above. (5) Hypertension: Qualifiers: Hypertension type: essential hypertension Qualified Code(s): I10 - Essential (primary) hypertension Code(s): I10 - Essential (primary) hypertension Status: Acute Assessment and Plan: BP reviewed on 10/25/19. BP mildly elevated but allowing for permissive HTN. Home verapamil on hold. Hydralazine available as needed. 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 Glucose reviewed on 10/25/2019. Continue Accu-Cheks with sliding scale protocol. Hypoglycemia protocol available as needed. (7) Anxiety: Code(s): F41.9 - Anxiety disorder, unspecified Status: Acute Assessment and Plan: Mood stable. Lexapro on hold due to dysphagia. (8) HLD (hyperlipidemia): Qualifiers: Hyperlipidemia type: unspecified Qualified Code(s): E78.5 - Hyperlipidemia, unspecified Code(s): E78.5 - Hyperlipidemia, unspecified Status: Acute Assessment and Plan: Patient mostly with hypertriglyceridemia. This is being monitored by his doctor. Plan to resume Crestor when able. (9) SERENA (obstructive sleep apnea): Code(s): G47.33 - Obstructive sleep apnea (adult) (pediatric) Status: Acute Assessment and Plan: Noncompliant with treatment. Subjective Date/time seen: 10/25/19 12:08 Interval history: 44yo male with DM and HTN here for dysphagia, dysphonia and dysarthria concerning for brainstem CVA. Date of service 10/24/19: Feels well. Having a headache today. Decreased amount of secretions. No coughing or choking. Using a walker to ambulate because of unsteady gait. He states he leans to the right. Exam Narrative: Exam Narrative: AF 143/97 77 16 100% ra Gen -NARD HEENT - roving eye movements but improved, tracks well Chest - CTA bilaterally, nml RR CV - RRR S1/S2. Tele showing no dysrhythmi
[2019-10-25] MEDS: AMINO ACIDS 4.25%/D5W/LYTES/CA 2,000 ML 80 ML IV CONT (14:29)
[2019-10-25] MEDS: FAT EMULSIONS IV 20% 250 ML 20.8 ML IVPB (14:36)
[2019-10-25 17:52] LABS: Glucose Point of Care 125 (65-105)
--- NOTE | 2019-10-25 18:35 | WPDNEUROPN ---
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, unspecified Status: Acute (2) Dysphagia: Code(s): R13.10 - Dysphagia, unspecified Status: Acute (3) SERENA (obstructive sleep apnea): Code(s): G47.33 - Obstructive sleep apnea (adult) (pediatric) Status: Acute (4) Facial droop: Code(s): R29.810 - Facial weakness Status: Acute (5) Dysarthria: Code(s): R47.1 - Dysarthria and anarthria Status: Acute (6) HLD (hyperlipidemia): Qualifiers: Hyperlipidemia type: unspecified Qualified Code(s): E78.5 - Hyperlipidemia, unspecified Code(s): E78.5 - Hyperlipidemia, unspecified Status: Acute (7) Anxiety: Code(s): F41.9 - Anxiety disorder, unspecified Status: Acute (8) Diabetes: Qualifiers: Diabetes mellitus type: type 2 Diabetes mellitus adjunct faculty for medical terminology insulin use: without adjunct faculty for medical terminology use Diabetes mellitus complication status: without complication Qualified Code(s): E11.9 - Type 2 diabetes mellitus without complications Code(s): E11.9 - Type 2 diabetes mellitus without complications Status: Acute (9) Hypertension: Qualifiers: Hypertension type: essential hypertension Qualified Code(s): I10 - Essential (primary) hypertension Code(s): I10 - Essential (primary) hypertension Status: Acute Additional Plan modified barium swallow is planned for tomorrow as I am told I am hoping that he will be a good candidate for our acute rehab program post that because his need up by speech therapy PT OT and gait training Discussed with the and the patient and answered their questions Review of Systems Review of Systems: All systems reviewed & are unremarkable except as noted in HPI and below Exam Const: General: comfortable and no acute distress HENMT: General nose exam: Normal nares present Mouth: Yes moist mucous membranes Eyes: General: appearance normal, both eyes and all related structures Neck: Neck: supple and no JVD Resp: Effort & Inspection: normal respiratory effort Auscultation: clear to auscultation bilaterally Cardio: Rate: regular rate Rhythm: regular rhythm GI: Auscultation: normal bowel sounds Neuro: Other: patient is awake alert will oriented has dysphonia and dysarthria dysphagia and right-sided weakness which is improving Extrem: General: normal to inspection Psych: Mental Status: mental status grossly normal Objective Data Vital Signs Vital Signs: Vital Signs - 24 hr 10/24/19 19:58 10/24/19 20:00 10/24/19 22:00 Temperature 36.9 C Pulse Rate 77 76 78 Respiratory Rate 18 Blood Pressure 155/92 H Pulse Oximetry 97 10/24/19 23:44 10/25/19 00:00 10/25/19 02:00 Temperature 35.9 C L Pulse Rate 83 77 69 Respiratory Rate 18 Blood Pressure 142/98 H Pulse Oximetry 97 10/25/19 04:00 10/25/19 06:00 10/25/19 08:00 Temperature 36.2 C L 36.5 C Pulse Rate 85 88 76 Respiratory Rate 20 18 Blood Pressure 149/83 H 150/99 H Pulse Oximetry 100 100 10/25/19 10:00 10/25/19 12:00 10/25/19 14:00 Temperature 36.3 C L Pulse Rate 83 78 75 Respiratory Rate 16 Blood Pressure 143/97 H Pulse Oximetry 100 10/25/19 16:00 10/25/19 17:00 Temperature 36.6 C Pulse Rate 75 81 Respiratory Rate 16 Blood Pressure 165/91 H Pulse Oximetry 100 Intake/Output Intake/Output: Intake & Output 10/22/19 10/23/19 10/24/19 10/25/19 23:59 23:59 23:59 23:59 Intake Total 3000 3100 2872 2045 Output Total 1300 1325 3495 2480 Balance 1700 4540 -311 -149 Meds/Results Medications: Active Medications Generic Name Dose Route Start Last Admin Trade Name Freq PRN Reason Stop Dose Admin Acetaminophen 650 mg 10/22/19 09:19 Tylenol Tablet PO Q4H PRN Mild Pain (1-3) or Fever Aspirin 81 mg 10/23/19 08:00 Aspirin Chewable PO DAILY@0800 [facility] Aspirin 300 mg 10/13
[2019-10-26] VITALS (15 sets, daily range): BP systolic 127–165; BP diastolic 81–107; PULSE 78–102; RESP 16–18; TEMP 35.6–36.9; O2SAT 96–100; BMI 35.4
[2019-10-26 00:26] LABS: Glucose Point of Care 136 (65-105)
[2019-10-26 04:55] LABS: Basophils Percent Auto 0.3 % (0.2-1.2); Eosinophils Absolute Auto 0.1 K/mm3 (0-0.3); Eosinophils Percent Auto 0.8 % (0-4.4); Immature Granulocyte Absolute 0.02 K/mm3 (0.00-0.031); Immature Granulocyte Percent A 0.3 % (0-0.5); Lymphocytes Absolute Auto 1.97 K/mm3 (0.9-3.2); Lymphocytes Percent Auto 26.5 % (18.3-44.2); Mean Corpuscular HGB Conc 36.6 g/dl (32-36); Mean Corpuscular Hemoglobin 32.8 pg (26-34); Mean Corpuscular Volume 89.7 fl (80-100); Mean Platelet Volume 9.3 fl (7.4-10.4); Monocytes Absolute Auto 0.7 K/mm3 (0.1-0.6); Monocytes Percent Auto 8.9 % (2.6-8.5); Neutrophils Absolute Auto 4.7 K/mm3 (1.3-6.7); Neutrophils Percent Auto 63.2 % (45.5-73.1); Platelet Count Result 259 k/mm3 (150-375); Red Blood Count 4.57 M/mm3 (4.6-6.20); Red Cell Distribution Width 11.2 % (11.5-14.5); White Blood Count 7.4 K/mm3 (4.5-10.0)
[2019-10-26 05:06] LABS: Prothrombin Time 12.6 Seconds (11.1-14.7)
[2019-10-26 05:07] LABS: Partial Thromboplastin Time 30.9 SECONDS (22.3-36.8)
[2019-10-26 05:10] LABS: Alanine Aminotransferase 34 U/L (4-50); Albumin Level 4.3 g/dL (3.5-5.1); Alkaline Phosphatase 74 U/L (38-126); Aspartate Amino Transferase 39 U/L (17-59); Bilirubin,Total 0.6 mg/dL (0.2-1.3); Blood Urea Nitrogen 15 mg/dL (9-20); Calcium 9.1 mg/dL (8.4-10.2); Carbon Dioxide 27 mmol/L (22-30); Chloride 99 mmol/L (98-107); Estimated CRCL calculation 226 ml/min; Estimated Glomerular Filt Rate > 60; Glucose 146 mg/dL (75-110); Magnesium 2.2 mg/dL (1.6-2.3); Phosphorus 3.8 mg/dL (2.5-4.5); Potassium 3.2 mmol/L (3.4-5.0); Sodium 135 mmol/L (137-145); Triglycerides 489 mg/dL (<150)
[2019-10-26 05:17] LABS: Transferrin 247 mg/dL (206-381)
[2019-10-26 05:57] LABS: Glucose Point of Care 138 (65-105)
[2019-10-26] MEDS: ENOXAPARIN 40 MG/0.4 ML SYRINGE SUB-Q ×2 (08:11→20:29)
[2019-10-26] MEDS: FAT EMULSIONS IV 20% 250 ML 20.8 ML IVPB (08:12)
[2019-10-26] MEDS: ASPIRIN 300 MG SUPPOSITORY RECTAL (08:24)
--- NOTE | 2019-10-26 09:34 | WPDNEUROPN ---
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, unspecified Status: Acute (2) Dysphagia: Code(s): R13.10 - Dysphagia, unspecified Status: Acute (3) SERENA (obstructive sleep apnea): Code(s): G47.33 - Obstructive sleep apnea (adult) (pediatric) Status: Acute (4) Facial droop: Code(s): R29.810 - Facial weakness Status: Acute (5) Dysarthria: Code(s): R47.1 - Dysarthria and anarthria Status: Acute (6) HLD (hyperlipidemia): Qualifiers: Hyperlipidemia type: unspecified Qualified Code(s): E78.5 - Hyperlipidemia, unspecified Code(s): E78.5 - Hyperlipidemia, unspecified Status: Acute (7) Anxiety: Code(s): F41.9 - Anxiety disorder, unspecified Status: Acute (8) Diabetes: Qualifiers: Diabetes mellitus type: type 2 Diabetes mellitus assistant terminal manager insulin use: without assistant terminal manager use Diabetes mellitus complication status: without complication Qualified Code(s): E11.9 - Type 2 diabetes mellitus without complications Code(s): E11.9 - Type 2 diabetes mellitus without complications Status: Acute Additional Plan continues with therapy Exam Const: General: cooperative, healthy appearing, comfortable, no acute distress, well developed, alert and awake Nutritional Appearance: average body habitus Orientation/consciousness: patient oriented x3 Limitations: no limitations HENMT: Head: normal to inspection Mouth: Yes Normal oral and palatal mucosa present Eyes: General: appearance normal, both eyes and all related structures Visual Keating: normal visual keating by confrontation Alignment and Position: alignment normal Periorbital: periorbital findings normal Eyelids: eyelids normal Conjunctivae: conjunctivae normal Sclera: sclerae normal Cornea: corneas normal Pupils: Equal, round and reactive pupils present, Pupils normal by confrontation and Pupil size comments EOM: EOMs intact bilaterally Direct Ophthalmoscopy: normal light reflex Neck: Neck: full ROM Resp: Effort & Inspection: normal respiratory effort Auscultation: clear to auscultation bilaterally Cardio: Rate: regular rate Rhythm: regular rhythm GI: Auscultation: normal bowel sounds Skin: General skin exam: no rashes or lesions noted Neuro: General: patient oriented x3 Speech: normal speech Psych: Appearance: grossly normal Objective Data Vital Signs Vital Signs: Vital Signs - 24 hr 10/25/19 10:00 10/25/19 12:00 10/25/19 14:00 Temperature 36.3 C L Pulse Rate 83 78 75 Respiratory Rate 16 Blood Pressure 143/97 H Pulse Oximetry 100 10/25/19 16:00 10/25/19 17:00 10/25/19 20:00 Temperature 36.6 C 36.8 C Pulse Rate 75 81 75 Respiratory Rate 16 18 Blood Pressure 165/91 H 149/50 H Pulse Oximetry 100 100 10/25/19 22:00 10/26/19 00:00 10/26/19 02:00 Temperature 36.5 C Pulse Rate 85 79 92 Respiratory Rate 18 Blood Pressure 127/92 H Pulse Oximetry 97 10/26/19 03:57 10/26/19 03:58 10/26/19 04:00 Temperature 36.9 C Pulse Rate 80 80 85 Respiratory Rate 18 18 Blood Pressure 165/91 H Pulse Oximetry 100 96 10/26/19 06:00 10/26/19 08:00 Temperature 36.4 C Pulse Rate 78 84 Respiratory Rate 16 Blood Pressure 134/97 H Pulse Oximetry 100 Intake/Output Intake/Output: Intake & Output 10/23/19 10/24/19 10/25/19 10/26/19 23:59 23:59 23:59 23:59 Intake Total 3100 2872 2145 196 Output Total 1325 3495 2955 1125 Balance 1775 -623 -810 -929 Meds/Results Medications: Active Medications Generic Name Dose Route Start Last Admin Trade Name Kari PRN Reason Stop Dose Admin Acetaminophen 650 mg 10/22/19 09:19 Tylenol Tablet PO Q4H PRN Mild Pain (1-3) or Fever Aspirin 81 mg 10/23/19 08:00 Aspirin Chewable PO DAILY@0800 [facility] Aspirin 300 mg 10/23/19 09:00 10/26/19 08:24 Aspirin Suppository RECTAL 300 mg
[2019-10-26 12:07] LABS: Glucose Point of Care 154 (65-105)
--- NOTE | 2019-10-26 14:22 | PCNSR ---
On 10/26/19, the student, Liam Murray, provided care and completed [facility] documentation on this patient. I have reviewed the student's documentation and agree with the findings.
--- NOTE | 2019-10-26 14:58 | PCSTNOTE ---
Please refer to the Modified Barium Swallow Evaluation in the EMR.
[2019-10-26] MEDS: CLOPIDOGREL BISULFATE 75 MG TABLET PO (15:50)
[2019-10-26 16:18] LABS: Glucose Point of Care 131 (65-105)
--- NOTE | 2019-10-26 18:06 | PM.IMPN ---
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 MRI of the brain 10/21 showing small area of increased T2-weighted signal intensity in the left frontal lobe white matter, which likely represents chronic small vessel ischemic disease. CTA of the head/neck showing no acute findings. Echo showing EF 70% with abnormal diastolic dysfunction. Bubble study showing intact septum. Repeat MRI brain 10/22 showing acute infarct in right posterolateral medulla in the expected distribution of right posterior inferior cerebellar artery (PICA). Patient has passed the modified barium swallow. Change to oral aspirin. Resume statin. Continue PT/OT/ST. He has been accepted to the [facility] and we were awaiting insurance authorization but not forthcoming today. Hopefully patient to can be moved to the [facility] tomorrow. (2) Dysphagia: Code(s): R13.10 - Dysphagia, unspecified Status: Acute Assessment and Plan: MBS 10/21 showing laryngeal penetration but no definite aspiration is identified, although the patient is at increased risk. Patient seen by ST and made NPO due to dysphagia. Speech therapy working with patient. Patient's swallowing ability has improved overall. MBS completed today. Discussed with ST: the patient passed MBS and able now to have a soft, level 6 diet with thin liquids. Stop TPN. Start diet. Change meds to oral route. Continue speech therapy. (3) Facial droop: Code(s): R29.810 - Facial weakness Status: Acute Assessment and Plan: As above. (4) Dysarthria: Code(s): R47.1 - Dysarthria and anarthria Status: Acute Assessment and Plan: Patient with more bulbar symptoms. As above. (5) Hypertension: Qualifiers: Hypertension type: essential hypertension Qualified Code(s): I10 - Essential (primary) hypertension Code(s): I10 - Essential (primary) hypertension Status: Acute Assessment and Plan: BP reviewed on 10/26/19. BP mildly elevated but allowing for permissive HTN. Home verapamil remains on hold. Hydralazine available as needed. Tighter BP control in another 2-3 days. (6) Diabetes: Qualifiers: Diabetes mellitus complication status: without complication Diabetes mellitus long term care phlebotomist insulin use: without senior living use Diabetes mellitus type: type 2 Qualified Code(s): E11.9 - Type 2 diabetes mellitus without complications Code(s): E11.9 - Type 2 diabetes mellitus without complications Status: Acute Assessment and Plan: A1c 6.9 recently. Glucose reviewed on 10/26/2019 nd remaining stable. Continue Accu-Cheks with sliding scale protocol. Hypoglycemia protocol available as needed. (7) Anxiety: Code(s): F41.9 - Anxiety disorder, unspecified Status: Acute Assessment and Plan: Mood stable. Resume Lexapro. (8) HLD (hyperlipidemia): Qualifiers: Hyperlipidemia type: unspecified Qualified Code(s): E78.5 - Hyperlipidemia, unspecified Code(s): E78.5 - Hyperlipidemia, unspecified Status: Acute Assessment and Plan: Patient mostly with hypertriglyceridemia. This is being monitored by his doctor. Since he passed his MBS, will resume Crestor and increase to 20mg. Side effects discussed with patient. (9) SERENA (obstructive sleep apnea): Code(s): G47.33 - Obstructive sleep apnea (adult) (pediatric) Status: Acute Assessment and Plan: Noncompliant with treatment. Subjective Date/time seen: 10/26/19 Interval history: 44yo male with DM and HTN here for dysphagia, dysphonia and dysarthria concerning for brainstem CVA. Date of service 10/26/19: No problems overnight. He is walking better with a walker.
[2019-10-26] MEDS: ESCITALOPRAM OXALATE 10 MG TABLET 20 MG PO (20:28)
[2019-10-26] MEDS: POTASSIUM CHLORIDE 20 MEQ TABLET PO (20:28)
[2019-10-26 20:34] LABS: Glucose Point of Care 140 (65-105)
[2019-10-26] MEDS: ACETAMINOPHEN 325 MG TABLET 650 MG PO (23:34)
[2019-10-27] VITALS (11 sets, daily range): BP systolic 142–169; BP diastolic 92–105; PULSE 74–106; RESP 12–20; TEMP 36.1–37; O2SAT 98–100
[2019-10-27] MEDS: ENOXAPARIN 40 MG/0.4 ML SYRINGE SUB-Q (08:10)
[2019-10-27] MEDS: ASPIRIN 81 MG CHEWABLE TABLET PO (08:10)
[2019-10-27] MEDS: CLOPIDOGREL BISULFATE 75 MG TABLET PO (08:10)
[2019-10-27] MEDS: ROSUVASTATIN 10 MG TABLET 20 MG PO (08:10)
[2019-10-27] MEDS: ACETAMINOPHEN 325 MG TABLET 650 MG PO ×2 (08:12→16:50)
[2019-10-27 08:47] LABS: Glucose Point of Care 137 (65-105)
--- NOTE | 2019-10-27 08:58 | PCDIET ---
Nutrition Follow-Up Complete: Nutrition Diagnosis: Swallowing difficulties related to brainstem stroke as evidenced by NPO with swallow evaluation order. Nutrition Goal: Patient to meet estimated nutritional requirements. Goal in progress. Diet was advanced to soft and bite size (per STUDENT SERVICES VICE PRESIDENT recommendation), heart healthy diet yesterday. Patient consumed 100% of dinner meal. Possible transfer to rehab unit noted. Last recorded weight is 125.3 kg which is decreased from last review. -I/O. Expect stabilization with continued intake. Bowel Motility: No documented BM. Labs Reviewed: Glu (137) Meds Noted: Novolog, MVI Additional Notes: No documented skin breakdown. Would consider adding medication for BM if medically appropriate. If intakes remain good, would also add carbohydrate control. Nutrition Monitoring and Evaluation: Follow up in 3 days.
[2019-10-27 11:11] LABS: Glucose Point of Care 193 (65-105)
[2019-10-27 16:06] LABS: Glucose Point of Care 139 (65-105)
[2019-10-27] MEDS: hydrALAZINE HCL 20 MG/ML VIAL 10 MG IV PUSH (17:25)
[2019-10-29 17:31] LABS: Acetylchol Receptor Binding Ab <0.30 nmol/L
--- NOTE | 2019-10-31 17:56 | PM.DS ---
DS: Admitting Diagnosis Admitting Diagnosis Admitting Diagnosis: Dysphagia, unspecified DS: Discharge Diagnosis Discharge Diagnosis (1) Brainstem stroke: Code(s): I63.9 - Cerebral infarction, unspecified Status: Acute Assessment and Plan: Patient with right facial droop, weak palate, roving eye movements and dysphagia concerning for brain stem CVA. MRI of the brain 10/21 showing small area of increased T2-weighted signal intensity in the left frontal lobe white matter, which likely represents chronic small vessel ischemic disease. CTA of the head/neck showing no acute findings. Echo showing EF 70% with abnormal diastolic dysfunction. Bubble study showing intact septum. Repeat MRI brain 10/22 showing acute infarct in right posterolateral medulla in the expected distribution of right posterior inferior cerebellar artery (PICA). Patient passed the modified barium swallow. Change to oral aspirin. . Continue PT/OT/ST. He has been accepted to the [facility] and transferred there for rehab. Antihypertensive and statin were resumed. (2) Dysphagia: Code(s): R13.10 - Dysphagia, unspecified Status: Acute Assessment and Plan: MBS 10/21 showing laryngeal penetration but no definite aspiration is identified, although the patient is at increased risk. Patient seen by ST and made NPO due to dysphagia. Speech therapy working with patient. : the patient passed MBS and able now to have a soft, level 6 diet with thin liquids. . Change meds to oral route. Continue speech therapy. (3) Facial droop: Code(s): R29.810 - Facial weakness Status: Acute Assessment and Plan: As above. (4) Dysarthria: Code(s): R47.1 - Dysarthria and anarthria Status: Acute Assessment and Plan: Patient with more bulbar symptoms. As above. (5) Hypertension: Qualifiers: Hypertension type: essential hypertension Qualified Code(s): I10 - Essential (primary) hypertension Code(s): I10 - Essential (primary) hypertension Status: Acute Assessment and Plan: BP reviewed on 10/27/19. BP mildly elevated but allowing for permissive HTN. Home verapamil restarted on discharge to acute rehab. 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 Glucose reviewed on 10/27/2019 nd remaining stable. Continue Accu-Cheks with sliding scale protocol. Hypoglycemia protocol available as needed. (7) Anxiety: Code(s): F41.9 - Anxiety disorder, unspecified Status: Acute Assessment and Plan: Mood stable. Resume Lexapro. (8) HLD (hyperlipidemia): Qualifiers: Hyperlipidemia type: unspecified Qualified Code(s): E78.5 - Hyperlipidemia, unspecified Code(s): E78.5 - Hyperlipidemia, unspecified Status: Acute Assessment and Plan: Patient mostly with hypertriglyceridemia. This is being monitored by his doctor. Since he passed his MBS, will resume Crestor and increase to 20mg. Side effects discussed with patient. (9) SERENA (obstructive sleep apnea): Code(s): G47.33 - Obstructive sleep apnea (adult) (pediatric) Status: Acute Assessment and Plan: Noncompliant with treatment. DS: Summary Hospital Course Hospital Course: 44-year-old hypertensive type 2 diabetic admitted with brainstem symptomatology. Negative CT and initially MR but repeat MR revealed medullary infarct compatible with his symptomatology. Echo no abnormality and CTA revealed no carotid occlusion. Patient eventually passed swallow test in seen by speech and OT PT. Was a candidate f
== END 2019-10-27 18:05 | DRG 65 ==
LOC: ANHED 09:28 → ANH2MED 09:47 → ANHIMU 10-23 17:12
PROVIDERS: Admitting Provider Internal Medicine; Emergency Provider Emergency Medicine; PCP Family Medicine; Visit Provider Internal Medicine
DX: I63.9 Cerebral infarction, unspecified (principal); G81.91 Hemiplegia, unspecified affecting right dominant side; R13.10 Dysphagia, unspecified; R47.81 Slurred speech; R29.810 Facial weakness; R26.0 Ataxic gait; R47.1 Dysarthria and anarthria; I10 Essential (primary) hypertension; E11.9 Type 2 diabetes mellitus without complications; F41.9 Anxiety disorder, unspecified; E78.5 Hyperlipidemia, unspecified; G47.33 Obstructive sleep apnea (adult) (pediatric); R29.702 NIHSS score 2; G43.909 Migraine, unspecified, not intractable, without status migrainosus
CPT/HCPCS: 36415; 36600; 51701; 70450; 70496; 70498; 70553; 71045; 80053; 80069; 81001; 82010; 82375; 82607; 82746; 82805; 82948; 83050; 83735; 84100; 84238; 84443; 84466; 84478; 84484; 85025; 85027; 85610; 85730; 92526; 92611; 93005; 93306; 93308; 96361; 96365; 96372; 96374; 96375; 97110; 97116; 97161; 97165; 97530; 97535; 99285; A9270; A9577; C8929; G0378; J0131; J0360; J1650; J2405; J7030; J7120; Q9957; Q9967

== ENCOUNTER 2019-10-27 18:06 | IRF | payer OTHER, SELFPAY ==
[2019-10-27 17:05] VITALS: BP 178/96; PULSE 110; RESP 14; TEMP 36.9; O2SAT 100; BMI 34.2
--- NOTE | 2019-10-27 18:28 | ADMGEN ---
Arrived from IMU via wheelchair. This patient, Shawn Burden, was admitted to [facility] Room 218-01. Patient/family oriented to hospital policies and general routines including ID bracelet, bed and alarms, visiting hours, pain management, procedures, bathroom and other care routines, personal items, smoking policy, room service/diet, and visiting hours. Valuables list has been completed. Information on how to activate the Rapid Response Team has been discussed. Patient/Family are encouraged to report perceived risks to care and to ask questions if they do not understand what they are told or what they should do.
[2019-10-27 18:56] VITALS: BMI 34.2
[2019-10-27] MEDS: ENOXAPARIN 40 MG/0.4 ML SYRINGE SUB-Q (20:26)
[2019-10-27] MEDS: MULTIVITAMINS /C LUTEIN (CENTRUM SILVER) TABLET *BKC 1 TAB PO (20:26)
[2019-10-27] MEDS: VERAPAMIL HCL 180 MG TABLET ER PO (20:27)
[2019-10-27 21:35] LABS: Glucose Point of Care 173 (65-105)
[2019-10-27 22:00] VITALS: BP 146/92; PULSE 106; RESP 18; TEMP 37; O2SAT 100
[2019-10-27 23:05] VITALS: PULSE 97; RESP 18; O2SAT 100
[2019-10-28] MEDS: ACETAMINOPHEN 325 MG TABLET 650 MG PO ×3 (02:39→17:18)
[2019-10-28 04:57] LABS: Basophils Percent Auto 0.3 % (0.2-1.2); Eosinophils Absolute Auto 0.1 K/mm3 (0-0.3); Eosinophils Percent Auto 0.7 % (0-4.4); Hemoglobin 15.6 g/dL (14.0-18.0); Immature Granulocyte Absolute 0.03 K/mm3 (0.00-0.031); Immature Granulocyte Percent A 0.3 % (0-0.5); Lymphocytes Absolute Auto 2.68 K/mm3 (0.9-3.2); Lymphocytes Percent Auto 30.2 % (18.3-44.2); Mean Corpuscular HGB Conc 35.5 g/dl (32-36); Mean Corpuscular Hemoglobin 32.4 pg (26-34); Mean Corpuscular Volume 91.3 fl (80-100); Mean Platelet Volume 9.2 fl (7.4-10.4); Monocytes Absolute Auto 0.8 K/mm3 (0.1-0.6); Monocytes Percent Auto 9.1 % (2.6-8.5); Neutrophils Absolute Auto 5.3 K/mm3 (1.3-6.7); Neutrophils Percent Auto 59.4 % (45.5-73.1); Platelet Count Result 283 k/mm3 (150-375); Red Blood Count 4.82 M/mm3 (4.6-6.20); Red Cell Distribution Width 11.6 % (11.5-14.5); White Blood Count 8.9 K/mm3 (4.5-10.0)
[2019-10-28 05:09] LABS: Blood Urea Nitrogen 15 mg/dL (9-20); Calcium 9.6 mg/dL (8.4-10.2); Carbon Dioxide 29 mmol/L (22-30); Chloride 99 mmol/L (98-107); Cholesterol 166 mg/dL (0-200); Estimated CRCL calculation 164 ml/min; Estimated Glomerular Filt Rate > 60; Glucose 143 mg/dL (75-110); HDL Direct 36 mg/dL; Potassium 3.5 mmol/L (3.4-5.0); Sodium 137 mmol/L (137-145); Triglycerides 305 mg/dL (<150)
[2019-10-28 05:10] LABS: Hemoglobin A1C 6.9 % (<5.7)
[2019-10-28 05:20] LABS: LDL Cholesterol Direct 85 mg/dL
[2019-10-28 06:00] VITALS: BP 129/85; PULSE 95; RESP 17; TEMP 36.5; O2SAT 98
[2019-10-28 06:51] LABS: Glucose Point of Care 128 (65-105)
[2019-10-28 08:40] VITALS: PULSE 98; RESP 18
[2019-10-28] MEDS: ASPIRIN 81 MG CHEWABLE TABLET PO (08:54)
[2019-10-28] MEDS: CLOPIDOGREL BISULFATE 75 MG TABLET PO (08:54)
[2019-10-28] MEDS: ROSUVASTATIN 10 MG TABLET 20 MG PO (08:54)
[2019-10-28] MEDS: ENOXAPARIN 40 MG/0.4 ML SYRINGE SUB-Q ×2 (08:54→19:25)
[2019-10-28 08:57] VITALS: TEMP 36.5
--- NOTE | 2019-10-28 10:30 | WPDREHABHP ---
H&P: HPI History of Present Illness Chief complaint: CVA Narrative: Shawn Burden is a 44 year old male HISTORY OF PRESENT ILLNESS: The patient's primary rehab impairment category is Stroke The etiologic diagnosis is acute infarct in right posterior lateral medulla in the expected distribution of the right posterior inferior cerebellar artery ( PICA ) I saw this patient [id number] on October 28, 2019 at 10:30 a.m. The patient is a 44-year-old white male with past medical history of diabetes mellitus and hypertension who initially presented to [facility] on October 22, 2019 with new onset of right-sided weakness and slurring of the speech. The patient is followed by Dr. mcqueen in [facility] for his diabetes mellitus and his last A1c was 6.9 in September 2019. In the emergency room the patient's blood pressure was 159/103. The patient reported that he has double vision in his left lateral view. He presented with increased leaning to his right side and appeared to be choking with oral intake. CT of the brain was normal. Chest x-ray was negative. Initial brain MRI showed a small area of increased T2 weighted signal intensity in the left frontal lobe white matter likely representing chronic small vessel ischemic disease. This was not really responsible for the patient's symptomatology. Head and neck CTA showed a normal brain with no aneurysm or significant intracranial artery stenosis. The echocardiogram revealed an ejection fraction of 65 to 70% with abnormal left ventricular diastolic function. An EKG revealed sinus rhythm with sinus arrhythmia. Is speech language pathologist was consulted and the modified barium swallow revealed laryngeal poor attention. Neurology was consulted and he was placed on Plavix 75 milligram daily for 3 weeks however the patient's inability to swallow he will receive aspirin and Lovenox for right now. A repeat echocardiogram was also done the patient was admitted on SeptemberNovember 01 February 02, 2020 for further evaluation and workup. On October 23, 2019 than the neurologist saw the patient and order repeat brain MRI and transferred to IMU for frequent monitoring and neuro checks. The hospitalist order to continue rectal aspirin the patient did undergo for repeat MRI of the brain October 22 and does not reveal as clinically expected an acute infarct in the right posterior lateral medulla in the expected distribution of right posterior inferior cerebellar artery ( PICA ) and a small area of increased T2 weighted signal intensity in the left frontal lobe white matter which has not really changed from the previous MRI. An echocardiogram with bubble study revealed normal findings. On October 23 the hospitalist ordered a [facility] consult and to continue with the therapy which including the speech PT OT and gait training the patient was seen again by the neurologist and then began to consider and nasogastric tube feeding due to patient's dysphagia and continued NPO status. On October 23 a repeat chest x-ray revealed mild atelectasis in the lower lungs. October 25, 2019 the hospitalist reported that speech therapy finds patient's swallowing to be improving recommended a repeat body of modified barium swallow and order TPN to be started on October 26, 2019 on October 26, 2019 the hospitalist discontinued rectal aspirin ordered oral aspirin resume statin and would like patient to be transferred to [facility]. The repeat modified barium swallow revealed only mild valley color and by form sinus residual, mild crania phalanges muscle dysfunction no per attention or aspiration. The patient has not traveled outside the [place] or had contact with someone who is ill that has traveled outside the [place] in the past 21 days. The patient has not traveled to an area of the [place] that is experiencing no transmission of the Coronavirus and has not had close personal contact with anyone that has. The patient does not have a fever. The patient is not experiencing lower respi
[2019-10-28 12:32] LABS: Glucose Point of Care 174 (65-105)
[2019-10-28 13:11] VITALS: BMI 34.2
--- NOTE | 2019-10-28 13:34 | RPD ---
INDIVIDUALIZED PLAN OF CARE FOR Shawn Hutchison Burden Brief Synthesis of Pre-Admission Screen, Post-Admission Evaluation and Therapy Evaluations: The patient presents to rehab with an acute infarct in right posterolateral medulla in the expected distribution of right posterior inferior cerebellar artery (PICA). Comorbidities include hypertension, hyperlipidemia, diabetes mellitus, anxiety, obstructive sleep apnea, right facial droop, dysarthria, dysphagia, and anxiety. The patient?s needs will be best met in an intensive program vs. at a lower level of care. The patient requires physician services for neurology services, medical oversight, and coordination of care. The patient requires nursing services for frequent neuro checks, anticoagulation therapy, medication management and education, pressure relief and skin care management, monitoring of labs, bowel and bladder training, diabetes management and education, and fall/safety precautions. Deficits include:ADLs, Balance, Cognition, Endurance, Family Training/Education, Mobility, Pain Management, ROM, Safety, Speech, Strength, Swallowing, and Transfers. Director Of Research/Case Management for: Discharge Planning and Patient/Family Counseling Physical Therapy: 5 days per week for 75 minutes. Treatments may include: Therapeutic Exercise, Gait Training, Neuromuscular Re-education, Transfer Training, Community Reintegration, Bed Mobility, Patient/Family Education, Wheelchair Mobility Group Therapy/Concurrent Therapy Rationales: -Improve attention span during functional activities in a distracted environment. -Enhance problem solving and/or adequate judgment skills during functional activities in a distracted environment. -Promote increased safety awareness in a distracted environment to reduce fall risk with functional tasks, transfers, and ambulation to allow a more safe, self-sufficient return to the home environment. -Improve dynamic balance skills to promote safety and independence with functional activities in a distracted environment for maximum gain. Occupational Therapy: 5 days per week for 75 minutes. Treatments may include: Therapeutic Exercise, Therapeutic Activity, Cognitive Training, Self-Care Transfer Training, Community Reintegration, Home Management, Patient/Family Education, Wheelchair Mobility Training, Energy Conservation Training Group Therapy/Concurrent Therapy Rationales: -Allow therapist to observe and teach generalization and carry-over of skills learned in individual therapy. -Enhance problem solving and sequencing skills during therapeutic activities in a distracted environment. -Promote increased safety awareness in a realistic setting to reduce fall risk with functional tasks due to visual and verbal distractions. -Increase functional level with ADLs, ADL transfers and use of adaptive equipment through therapeutic activities with others while promoting safety to allow a more safe, self-sufficient return home. Speech Therapy: 5 days per week for 30 minutes. Treatments may include: Dysphasia Therapy, Speech/Language/Communication Therapy, Cognitive Training, Patient/Family Education Group Therapy/Concurrent Therapy - Rationale: -Allow therapist to observe and teach generalization and carry-over of skills learned in individual therapy. -Improve comprehension skills with complex or abstract ideas through discussion in a realistic setting. -Enhance problem solving skills with complex issues during activities in a distracted environment. -Promote increased memory skills and concentration in a distracted environment for a safe transition home. -Improve attention and focus with language/communication skills in a realistic and supportive therapeutic setting. -Allow for practice of expression of basic needs and ideas through functional activities with others. Medical Prognosis: Good Anticipated Length of Stay: 7 days Rehab Goals: Eating Goal: 06-Independent Oral Hygiene Goal: 06-Independent Toileting
[2019-10-28 14:00] VITALS: BP 158/79; PULSE 102; RESP 20; TEMP 36.9; O2SAT 97
--- NOTE | 2019-10-28 14:04 | PCNSR ---
On 10/28/19, the student, Liam Murray, provided care and completed [facility] documentation on this patient. I have reviewed the student's documentation and agree with the findings.
--- NOTE | 2019-10-28 16:38 | PCSTNOTE ---
Please refer to the Bedside Swallow Evaluation in the EMR. Please note, silent aspiration cannot be ruled out at bedside.
[2019-10-28] MEDS: VERAPAMIL HCL 180 MG TABLET ER PO (19:26)
[2019-10-28] MEDS: MULTIVITAMINS /C LUTEIN (CENTRUM SILVER) TABLET *BKC 1 TAB PO (19:26)
[2019-10-28 19:56] LABS: Glucose Point of Care 138 (65-105)
[2019-10-28 21:44] LABS: Glucose Point of Care 199 (65-105)
[2019-10-28 22:00] VITALS: BP 156/90; PULSE 100; RESP 20; TEMP 37.4; O2SAT 98
[2019-10-28 23:15] VITALS: PULSE 93; RESP 18; O2SAT 100
[2019-10-29] VITALS (7 sets, daily range): BP systolic 142–149; BP diastolic 65–107; PULSE 68–94; RESP 18–20; TEMP 36.6–36.7; O2SAT 100
[2019-10-29] MEDS: ACETAMINOPHEN 325 MG TABLET 650 MG PO ×4 (01:00→20:50)
[2019-10-29 07:03] LABS: Glucose Point of Care 143 (65-105)
[2019-10-29] MEDS: ASPIRIN 81 MG CHEWABLE TABLET PO (08:59)
[2019-10-29] MEDS: ENOXAPARIN 40 MG/0.4 ML SYRINGE SUB-Q ×2 (09:00→20:37)
[2019-10-29] MEDS: CLOPIDOGREL BISULFATE 75 MG TABLET PO (09:00)
[2019-10-29] MEDS: ROSUVASTATIN 10 MG TABLET 20 MG PO (09:00)
[2019-10-29] MEDS: ESCITALOPRAM OXALATE 10 MG TABLET 20 MG PO (11:36)
[2019-10-29] MEDS: metFORMIN HCL 500 MG TABLET PO (11:36)
[2019-10-29 12:10] LABS: Glucose Point of Care 170 (65-105)
--- NOTE | 2019-10-29 12:14 | WPDNEURORHBP ---
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 and some blurriness of the vision he is improving and eating fairly well however still needs plenty of therapy for his higher level balance and right-sided weakness and uses walker He denies any headache nausea vomiting chest pain shortness of breath fever chills sore throat Review of Systems Review of Systems: All systems reviewed & are unremarkable except as noted in HPI and below Functional Status Ambulation Ability Ability to Ambulate 10 Feet: Minimum Assistance X 1 Ability to Ambulate 50 Feet With 2 Turns: Minimum Assistance X 1 Ability to Ambulate 150 Feet: Minimum Assistance X 1 Ambulation Assistive Devices: Walker, Wheeled Transfers Ability Ability to Transfer In/Out of Chair: Minimum Assistance X 1 Exam Const: General: comfortable and no acute distress HENMT: General nose exam: Normal nares present Mouth: Yes moist mucous membranes Eyes: General: appearance normal, both eyes and all related structures Neck: Neck: supple and no JVD Resp: Effort & Inspection: normal respiratory effort Auscultation: clear to auscultation bilaterally Cardio: Rate: regular rate Rhythm: regular rhythm GI: GI Palp: Yes Soft to palpation Auscultation: normal bowel sounds Skin: General skin exam: normal color and no rashes or lesions noted Neuro: Other: patient is awake alert well oriented to time place and person his dysphagia dysphonic three a and dysphonia has significantlyImproved however is still needs therapy for the higher level balance ataxia and monitoring his blood pressure he is she is still using walker to prevent falls Extrem: General: normal to inspection Psych: Mental Status: mental status grossly normal Objective Data Vital Signs Vital Signs: Vital Signs - 24 hr 10/29/19 13:31 10/29/19 14:00 10/29/19 19:50 Temperature 36.6 C Pulse Rate 90 90 Respiratory Rate 20 20 Blood Pressure 146/104 H 142/88 H Pulse Oximetry 100 100 10/29/19 22:00 10/30/19 06:00 Temperature 36.7 C 36.9 C Pulse Rate 94 94 Respiratory Rate 18 16 Blood Pressure 143/87 H 140/94 H Pulse Oximetry 100 98 Intake/Output Intake/Output: Intake & Output 10/27/19 10/28/19 10/29/19 10/30/19 23:59 23:59 23:59 23:59 Intake Total 960 720 480 Balance 960 720 480 Meds/Results Medications: Active Medications Generic Name Dose Route Start Last Admin Trade Name Freq PRN Reason Stop Dose Admin Acetaminophen 650 mg 10/27/19 18:37 10/30/19 07:57 Tylenol Tablet PO 650 mg Q4H PRN Administration Mild Pain (1-3) Or Fever Aspirin 81 mg 10/28/19 08:00 10/30/19 07:52 Aspirin Chewable PO 81 mg DAILY@0800 [facility] Administration Clopidogrel Bisulfate 75 mg 10/28/19 09:00 10/30/19 07:52 [facility] Dextrose 12.5 gm 10/27/19 18:39 Dextrose 50% Syringe IV PUSH PRN PRN Hypoglycemia Protocol Enoxaparin Sodium 40 mg 10/27/19 21:00 10/30/19 07:52 Lovenox SUB-Q 40 mg Q12HR [facility] Administration Escitalopram Oxalate 20 mg 10/29/19 11:00 10/30/19 07:53 Lexapro PO 20 mg [facility] Administration Glucagon 1 mg 10/27/19 18:39 Glucagon For Inj IM PRN PRN Hypoglycemia Protocol Glucose 15 gm 10/27/19 18:39 Glutose 15 PO PRN PRN Hypoglycemia Protocol Dextrose 1,000 mls @ 100 mls/hr 10/27/19 18:39 Dextrose 5% 1,000 Ml IVPB PRN PRN Hypoglycemia Protocol Insulin Aspart 3 - 6 units 10/28/19 08:00 10/30/19 07:58 Novolog SUB-Q Not Given [facility] Protocol Metformin HCl 500 mg 10/29/19 11:00 10/30/19 07:52 Glucophage PO 500 mg DAILY@0800 [facility] Administration Multivitamins/Minerals 1 tab 10/27/19 21:00 10/29/19 20:36 Centrum Silver PO 1 tab HS [facility] Administration Ondanset
[2019-10-29 16:47] LABS: Glucose Point of Care 134 (65-105)
[2019-10-29] MEDS: VERAPAMIL HCL 180 MG TABLET ER PO (20:36)
[2019-10-29] MEDS: MULTIVITAMINS /C LUTEIN (CENTRUM SILVER) TABLET *BKC 1 TAB PO (20:36)
[2019-10-29 21:19] LABS: Glucose Point of Care 185 (65-105)
[2019-10-30] VITALS (8 sets, daily range): BP systolic 140–182; BP diastolic 76–100; PULSE 94–102; RESP 16–20; TEMP 36.3–36.9; O2SAT 98–99
[2019-10-30] MEDS: ACETAMINOPHEN 325 MG TABLET 650 MG PO ×3 (03:44→17:34)
[2019-10-30 07:10] LABS: Glucose Point of Care 143 (65-105)
[2019-10-30] MEDS: metFORMIN HCL 500 MG TABLET PO (07:52)
[2019-10-30] MEDS: ENOXAPARIN 40 MG/0.4 ML SYRINGE SUB-Q ×2 (07:52→20:06)
[2019-10-30] MEDS: CLOPIDOGREL BISULFATE 75 MG TABLET PO (07:52)
[2019-10-30] MEDS: ASPIRIN 81 MG CHEWABLE TABLET PO (07:52)
[2019-10-30] MEDS: ROSUVASTATIN 10 MG TABLET 20 MG PO (07:53)
[2019-10-30] MEDS: ESCITALOPRAM OXALATE 10 MG TABLET 20 MG PO (07:53)
[2019-10-30 11:47] LABS: Glucose Point of Care 166 (65-105)
--- NOTE | 2019-10-30 14:01 | WPDNEURORHBP ---
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-sided weakness most of his head and neck issues have almost resolved he is eating fairly well however still has problem with right-sided hemiparesis needs assistance in most of the activities of daily living particularly for high-level balance the other issue is the high blood pressure and feels hot and it has been trending on the high side so we need to add some blood pressure medication otherwise he denies any headache nausea vomiting chest pain shortness of breath fever chills sore throat Review of Systems Review of Systems: All systems reviewed & are unremarkable except as noted in HPI and below Functional Status Ambulation Ability Ability to Ambulate 10 Feet: Minimum Assistance X 1 Ability to Ambulate 50 Feet With 2 Turns: Minimum Assistance X 1 Ability to Ambulate 150 Feet: Minimum Assistance X 1 Ambulation Assistive Devices: Walker, Wheeled Transfers Ability Ability to Transfer In/Out of Chair: Minimum Assistance X 1 Exam Const: General: comfortable and no acute distress HENMT: General nose exam: Normal nares present Mouth: Yes moist mucous membranes Eyes: General: appearance normal, both eyes and all related structures Neck: Neck: supple and no JVD Resp: Effort & Inspection: normal respiratory effort Auscultation: clear to auscultation bilaterally Cardio: Rate: regular rate GI: GI Palp: Yes Soft to palpation Auscultation: normal bowel sounds Skin: General skin exam: normal color and no rashes or lesions noted Neuro: Other: patient is awake alert well oriented is dysphagia dysphonia and dysarthria has improved right-sided hemiparesis improving overall picture is improved however higher blood pressure is probably causing to be little lightheaded and dizzy superimposed on the medullary infarct Extrem: General: normal to inspection Psych: Mental Status: mental status grossly normal Objective Data Vital Signs Vital Signs: Vital Signs - 24 hr 10/29/19 19:50 10/29/19 22:00 10/30/19 06:00 Temperature 36.7 C 36.9 C Pulse Rate 90 94 94 Respiratory Rate 20 18 16 Blood Pressure 143/87 H 140/94 H Pulse Oximetry 100 100 98 Intake/Output Intake/Output: Intake & Output 10/27/19 10/28/19 10/29/19 10/30/19 23:59 23:59 23:59 23:59 Intake Total 960 720 480 Balance 960 720 480 Meds/Results Medications: Active Medications Generic Name Dose Route Start Last Admin Trade Name Freq PRN Reason Stop Dose Admin Acetaminophen 650 mg 10/27/19 18:37 10/30/19 07:57 Tylenol Tablet PO 650 mg Q4H PRN Administration Mild Pain (1-3) Or Fever Amlodipine Besylate 5 mg 10/30/19 13:50 Norvasc PO QAM [facility] Aspirin 81 mg 10/28/19 08:00 10/30/19 07:52 Aspirin Chewable PO 81 mg DAILY@0800 [facility] Administration Clopidogrel Bisulfate 75 mg 10/28/19 09:00 10/30/19 07:52 [facility] [place] Dextrose 12.5 gm 10/27/19 18:39 Dextrose 50% Syringe IV PUSH PRN PRN Hypoglycemia Protocol Enoxaparin Sodium 40 mg 10/27/19 21:00 10/30/19 07:52 Lovenox SUB-Q 40 mg Q12HR [facility] Administration Escitalopram Oxalate 20 mg 10/29/19 11:00 10/30/19 07:53 Lexapro PO 20 mg [facility] [place] Glucagon 1 mg 10/27/19 18:39 Glucagon For Inj IM PRN PRN Hypoglycemia Protocol Glucose 15 gm 10/27/19 18:39 Glutose 15 PO PRN PRN Hypoglycemia Protocol Dextrose 1,000 mls @ 100 mls/hr 10/27/19 18:39 Dextrose 5% 1,000 Ml IVPB PRN PRN Hypoglycemia Protocol Insulin Aspart 3 - 6 units 10/28/19 08:00 10/30/19 12:17 Novolog SUB-Q [facility] [place] Metformin HCl 500 mg 10/29/19 11:00 10/30/19 07:52 Glucophage PO 500 mg DAILY@0800 [facility] Administration Multivitamins/Minerals 1
[2019-10-30] MEDS: amLODIPine BESYLATE 5 MG TABLET PO (14:45)
[2019-10-30 17:08] LABS: Glucose Point of Care 143 (65-105)
[2019-10-30] MEDS: hydrALAZINE HCL 50 MG TABLET PO (17:30)
[2019-10-30] MEDS: MULTIVITAMINS /C LUTEIN (CENTRUM SILVER) TABLET *BKC 1 TAB PO (20:05)
[2019-10-30] MEDS: VERAPAMIL HCL 180 MG TABLET ER PO (20:05)
[2019-10-30 21:13] LABS: Glucose Point of Care 193 (65-105)
[2019-10-31 02:00] VITALS: BP 152/92; PULSE 91; RESP 18; TEMP 37.1; O2SAT 97
[2019-10-31] MEDS: ACETAMINOPHEN 325 MG TABLET 650 MG PO ×2 (05:45→11:28)
[2019-10-31 06:00] VITALS: BP 142/86; PULSE 76; RESP 18; TEMP 37; O2SAT 100
[2019-10-31 06:47] LABS: Glucose Point of Care 130 (65-105)
[2019-10-31] MEDS: metFORMIN HCL 500 MG TABLET PO (08:29)
[2019-10-31] MEDS: ASPIRIN 81 MG CHEWABLE TABLET PO (08:29)
[2019-10-31] MEDS: ROSUVASTATIN 10 MG TABLET 20 MG PO (08:30)
[2019-10-31] MEDS: amLODIPine BESYLATE 5 MG TABLET PO (08:30)
[2019-10-31] MEDS: ESCITALOPRAM OXALATE 10 MG TABLET 20 MG PO (08:30)
[2019-10-31] MEDS: ENOXAPARIN 40 MG/0.4 ML SYRINGE SUB-Q ×2 (08:30→20:36)
[2019-10-31] MEDS: CLOPIDOGREL BISULFATE 75 MG TABLET PO (08:30)
--- NOTE | 2019-10-31 10:50 | PCPTNOTE ---
Shawn Burden was evaluated for a wheeled walker on 10/31/2019 by this physical therapist assistant passenger locomotive engineer. The wheeled walker will resolve patient's mobility limitations and will be used for ADL's within the home. The patient can safely use the wheeled walker. ?The wheeled walker will resolve the patient?s mobility deficits, including impaired balance.
[2019-10-31 11:00] VITALS: BP 152/90
[2019-10-31 12:20] LABS: Glucose Point of Care 132 (65-105)
[2019-10-31 13:00] VITALS: BP 172/110
[2019-10-31] MEDS: hydrALAZINE HCL 50 MG TABLET PO (13:13)
[2019-10-31 14:00] VITALS: BP 156/87; PULSE 92; RESP 20; TEMP 36.9; O2SAT 100
--- NOTE | 2019-10-31 15:41 | PC.NURSE ---
Spoke with Dr. Chanel about his BP and the Dyastolic is frequently above 90's and only has Hydralizine prn for systolic greater than 160. Increased Norvasc to 10mg daily and will continue prn as well.
[2019-10-31 17:05] LABS: Glucose Point of Care 155 (65-105)
[2019-10-31] MEDS: VERAPAMIL HCL 180 MG TABLET ER PO (20:36)
[2019-10-31] MEDS: MULTIVITAMINS /C LUTEIN (CENTRUM SILVER) TABLET *BKC 1 TAB PO (20:36)
[2019-10-31 21:06] LABS: Glucose Point of Care 184 (65-105)
[2019-10-31 22:00] VITALS: BP 152/96; PULSE 87; RESP 18; TEMP 36.7; O2SAT 99
[2019-11-01] MEDS: ACETAMINOPHEN 325 MG TABLET 650 MG PO ×4 (04:38→21:29)
[2019-11-01 05:46] VITALS: BP 133/76; PULSE 84; RESP 18; TEMP 36.8; O2SAT 100
[2019-11-01 06:52] LABS: Glucose Point of Care 146 (65-105)
[2019-11-01] MEDS: amLODIPine BESYLATE 5 MG TABLET 10 MG PO (08:39)
[2019-11-01] MEDS: ASPIRIN 81 MG CHEWABLE TABLET PO (08:39)
[2019-11-01] MEDS: ENOXAPARIN 40 MG/0.4 ML SYRINGE SUB-Q ×2 (08:40→20:25)
[2019-11-01] MEDS: ROSUVASTATIN 10 MG TABLET 20 MG PO (08:40)
[2019-11-01] MEDS: CLOPIDOGREL BISULFATE 75 MG TABLET PO (08:40)
[2019-11-01] MEDS: metFORMIN HCL 500 MG TABLET PO ×2 (08:40→17:27)
[2019-11-01] MEDS: ESCITALOPRAM OXALATE 10 MG TABLET 20 MG PO (08:40)
[2019-11-01 11:49] LABS: Glucose Point of Care 144 (65-105)
--- NOTE | 2019-11-01 13:16 | WPDNEURORHBP ---
Subjective Date/time seen: S/Pbrain stem stroke with involvemeny of medullaand dyphagia and uk[place]bt97/19/20 13:16 Review of Systems Review of Systems: All systems reviewed & are unremarkable except as noted in HPI and below Functional Status Ambulation Ability Ability to Ambulate 10 Feet: Minimum Assistance X 1 Ability to Ambulate 50 Feet With 2 Turns: Minimum Assistance X 1 Ability to Ambulate 150 Feet: Minimum Assistance X 1 Ambulation Assistive Devices: Walker, Wheeled Transfers Ability Ability to Transfer In/Out of Chair: Contact Guard Exam Const: General: cooperative, healthy appearing, comfortable, no acute distress and well developed Nutritional Appearance: average body habitus Limitations: no limitations HENMT: Head: normal to inspection Eyes: General: appearance normal, both eyes and all related structures Neck: Neck: full ROM and no lymphadenopathy Resp: Effort & Inspection: normal respiratory effort Auscultation: clear to auscultation bilaterally Cardio: Rate: regular rate Rhythm: regular rhythm GI: Auscultation: normal bowel sounds Neuro: General: patient oriented x3 and moves all extremities Cranial nerves: Yes CN's II-XII intact bilaterally, Yes Equal, round and reactive pupils present, Yes Nystagmus not present, Yes Midline tongue present, Yes Normal hearing present and Yes Ability to bilaterally elevate shoulders present Speech: normal speech Motor exam (neuro): 5/5 motor strength present throughout (4/5) Sensory Exam: normal sensation Extrem: General: normal to inspection Psych: Appearance: grossly normal Mental Status: mental status grossly normal Speech and movement: Normal speech and movement present Affect: normal affect Attitude: cooperative Thought process: Normal thought process present Insight: Good insight present (Psych) Judgement: Good judgement present (Psych) Objective Data Vital Signs Vital Signs: Vital Signs - 24 hr 10/31/19 14:00 10/31/19 22:00 11/01/19 05:46 Temperature 36.9 C 36.7 C 36.8 C Pulse Rate 92 87 84 Respiratory Rate 20 18 18 Blood Pressure 156/87 H 152/96 H 133/76 Pulse Oximetry 100 99 100 Intake/Output Intake/Output: Intake & Output 10/29/19 10/30/19 10/31/19 11/01/19 23:59 23:59 23:59 23:59 Intake Total 720 1200 720 480 Balance 720 1200 720 480 Meds/Results Medications: Active Medications Generic Name Dose Route Start Last Admin Trade Name Freq PRN Reason Stop Dose Admin Acetaminophen 650 mg 10/27/19 18:37 11/01/19 11:42 Tylenol Tablet PO 650 mg Q4H PRN Administration Mild Pain (1-3) Or Fever Amlodipine Besylate 10 mg 11/01/19 09:00 11/01/19 08:39 Norvasc PO 10 mg QAM [facility] Administration Aspirin 81 mg 10/28/19 08:00 11/01/19 08:39 Aspirin Chewable PO 81 mg DAILY@0800 [facility] Administration Clopidogrel Bisulfate 75 mg 10/28/19 09:00 11/01/19 08:40 Plavix PO 75 mg QAM [facility] Administration Dextrose 12.5 gm 10/27/19 18:39 Dextrose 50% Syringe IV PUSH PRN PRN Hypoglycemia Protocol Enoxaparin Sodium 40 mg 10/27/19 21:00 11/01/19 08:40 Lovenox SUB-Q 40 mg Q12HR [facility] Administration Escitalopram Oxalate 20 mg 10/29/19 11:00 11/01/19 08:40 Lexapro PO 20 mg QAM [facility] Administration Glucagon 1 mg 10/27/19 18:39 Glucagon For Inj IM PRN PRN Hypoglycemia Protocol Glucose 15 gm 10/27/19 18:39 Glutose 15 PO PRN PRN Hypoglycemia Protocol Hydralazine HCl 50 mg 10/30/19 15:38 10/31/19 13:13 Apresoline Tablet PO 50 mg QID PRN Administration Blood Pressure - High Dextrose 1,000 mls @ 100 mls/hr 10/27/19 18:39 Dextrose 5% 1,000 Ml IVPB PRN PRN Hypoglycemia Protocol Insulin Aspart 3 - 6 units 10/28/19 08:00 11/01/19 11:46 Novolog SUB-Q Not Given [facility] [place] [facility] Protocol Metformin HCl 500 mg 10/29/19 11:00 11/01/19 08:40 Glucophage PO 500 mg DAILY@0800 [facility]
[2019-11-01 14:00] VITALS: BP 163/82; PULSE 96; RESP 20; TEMP 36.9; O2SAT 97
[2019-11-01 17:14] LABS: Glucose Point of Care 126 (65-105)
[2019-11-01 19:50] VITALS: PULSE 91; RESP 20; O2SAT 97
[2019-11-01] MEDS: VERAPAMIL HCL 180 MG TABLET ER PO (20:25)
[2019-11-01] MEDS: MULTIVITAMINS /C LUTEIN (CENTRUM SILVER) TABLET *BKC 1 TAB PO (20:25)
[2019-11-01 21:04] LABS: Glucose Point of Care 125 (65-105)
[2019-11-01 21:21] VITALS: PULSE 91; O2SAT 97
[2019-11-01 22:00] VITALS: BP 143/97; PULSE 81; RESP 16; TEMP 36.4; O2SAT 100
[2019-11-02 01:48] VITALS: O2SAT 96
[2019-11-02 06:00] VITALS: BP 141/79; PULSE 78; RESP 17; TEMP 36.4; O2SAT 99
[2019-11-02 07:03] LABS: Glucose Point of Care 139 (65-105)
[2019-11-02] MEDS: metFORMIN HCL 500 MG TABLET PO ×2 (07:42→17:21)
[2019-11-02] MEDS: amLODIPine BESYLATE 5 MG TABLET 10 MG PO (07:42)
[2019-11-02] MEDS: ESCITALOPRAM OXALATE 10 MG TABLET 20 MG PO (07:42)
[2019-11-02] MEDS: CLOPIDOGREL BISULFATE 75 MG TABLET PO (07:42)
[2019-11-02] MEDS: ENOXAPARIN 40 MG/0.4 ML SYRINGE SUB-Q ×2 (07:42→20:13)
[2019-11-02] MEDS: ROSUVASTATIN 10 MG TABLET 20 MG PO (07:43)
[2019-11-02] MEDS: ASPIRIN 81 MG CHEWABLE TABLET PO (10:04)
[2019-11-02] MEDS: ACETAMINOPHEN 325 MG TABLET 650 MG PO ×2 (10:08→17:21)
--- NOTE | 2019-11-02 12:07 | PCNFU ---
Nutrition Follow-Up Complete: Food and nutrition related knowledge deficit related to no previous stroke education as evidenced by patient statement Goal: Patient to consume 75% or more of meals Patient is meeting goal. Pt current nutrition is Diabetic consistent carbohydrate diet and heart healthy. Nutrition recommendation: Agree with current diet recommendations. Last recorded weight is 121 kg. Bowel Motility: 10/30 last reported bowel movement Labs Reviewed: POC Capillary Glucose (139) Meds Noted: plavix, lovenox, novolog, multivitamin, zofran, verapimil, crestor Additional Notes: Patient is consuming 100% of most meals and reports good appetite. Patient did not report any diet related concerns and did not have any questions/concerns. Follow up in 7 days
--- NOTE | 2019-11-02 12:13 | PCNSR ---
On 11/02/19, the student, Liam Murray, provided care and completed [facility] documentation on this patient. I have reviewed the student's documentation and agree with the findings.
[2019-11-02 12:27] LABS: Glucose Point of Care 191 (65-105)
[2019-11-02 14:00] VITALS: BP 140/95; PULSE 101; RESP 20; TEMP 36.7; O2SAT 99
[2019-11-02 17:23] LABS: Glucose Point of Care 114 (65-105)
[2019-11-02] MEDS: MULTIVITAMINS /C LUTEIN (CENTRUM SILVER) TABLET *BKC 1 TAB PO (20:14)
[2019-11-02] MEDS: VERAPAMIL HCL 180 MG TABLET ER PO (20:14)
[2019-11-02 21:07] LABS: Glucose Point of Care 147 (65-105)
[2019-11-02 22:00] VITALS: BP 136/70; PULSE 99; RESP 18; TEMP 36.7; O2SAT 98
[2019-11-02 22:13] VITALS: PULSE 92; O2SAT 93
[2019-11-03] MEDS: ACETAMINOPHEN 325 MG TABLET 650 MG PO ×4 (01:39→20:51)
[2019-11-03 06:00] VITALS: BP 136/92; PULSE 80; RESP 18; TEMP 36.3; O2SAT 99
[2019-11-03 07:38] LABS: Glucose Point of Care 127 (65-105)
[2019-11-03] MEDS: metFORMIN HCL 500 MG TABLET PO ×2 (07:46→17:20)
[2019-11-03] MEDS: amLODIPine BESYLATE 5 MG TABLET 10 MG PO (07:46)
[2019-11-03] MEDS: ASPIRIN 81 MG CHEWABLE TABLET PO (07:46)
[2019-11-03] MEDS: ESCITALOPRAM OXALATE 10 MG TABLET 20 MG PO (07:47)
[2019-11-03] MEDS: CLOPIDOGREL BISULFATE 75 MG TABLET PO (07:47)
[2019-11-03] MEDS: ENOXAPARIN 40 MG/0.4 ML SYRINGE SUB-Q ×2 (07:47→20:50)
[2019-11-03] MEDS: ROSUVASTATIN 10 MG TABLET 20 MG PO (07:47)
[2019-11-03 11:49] LABS: Glucose Point of Care 152 (65-105)
--- NOTE | 2019-11-03 12:58 | WPDNEURORHBP ---
Subjective Date/time seen: 11/03/19 12:58 Interval history: this is a weekly team meeting with the case was discussed both with the patient and his the patient is here after having had a brainstem stroke and right-sided weakness his dysphagia and dysarthria has almost completely gone he is eating fairly well the blood pressure is an issue and we have been addressing it to slowly bring it down rather than drastically lowered considering the recent stroke he denies any headache nausea vomiting chest pain shortness of breath fever chills sore throat Review of Systems Review of Systems: All systems reviewed & are unremarkable except as noted in HPI and below Functional Status Ambulation Ability Ability to Ambulate 10 Feet: Contact Guard Ability to Ambulate 50 Feet With 2 Turns: Contact Guard Ability to Ambulate 150 Feet: Contact Guard Ambulation Assistive Devices: Walker, Wheeled Transfers Ability Ability to Transfer In/Out of Chair: Standby Assistance Exam Const: General: comfortable and no acute distress HENMT: General nose exam: Normal nares present Mouth: Yes moist mucous membranes Eyes: General: appearance normal, both eyes and all related structures Neck: Neck: supple and no JVD Resp: Effort & Inspection: normal respiratory effort Auscultation: clear to auscultation bilaterally Cardio: Rate: regular rate Rhythm: regular rhythm GI: GI Palp: Yes Soft to palpation Auscultation: normal bowel sounds Skin: General skin exam: normal color and no rashes or lesions noted Neuro: Other: using the walker his higher level balance and 40 is not quite back to his was before the stroke Extrem: General: normal to inspection Psych: Mental Status: mental status grossly normal Objective Data Vital Signs Vital Signs: Vital Signs - 24 hr 11/02/19 14:00 11/02/19 22:00 11/02/19 22:13 Temperature 36.7 C 36.7 C Pulse Rate 101 H 99 92 Respiratory Rate 20 18 Blood Pressure 140/95 H 136/70 Pulse Oximetry 99 98 93 11/03/19 06:00 Temperature 36.3 C L Pulse Rate 80 Respiratory Rate 18 Blood Pressure 136/92 H Pulse Oximetry 99 Intake/Output Intake/Output: Intake & Output 10/31/19 11/01/19 11/02/19 11/03/19 23:59 23:59 23:59 23:59 Intake Total 720 720 600 480 Balance 720 720 600 480 Meds/Results Medications: Active Medications Generic Name Dose Route Start Last Admin Trade Name Freq PRN Reason Stop Dose Admin Acetaminophen 650 mg 10/27/19 18:37 11/03/19 06:49 Tylenol Tablet PO 650 mg Q4H PRN Administration Mild Pain (1-3) Or Fever Amlodipine Besylate 10 mg 11/01/19 09:00 11/03/19 07:46 Norvasc PO 10 mg QAM [facility] Administration Aspirin 81 mg 10/28/19 08:00 11/03/19 07:46 Aspirin Chewable PO 81 mg DAILY@0800 [facility] Administration Clopidogrel Bisulfate 75 mg 10/28/19 09:00 11/03/19 07:47 Plavix PO 75 mg QAM [facility] Administration Dextrose 12.5 gm 10/27/19 18:39 Dextrose 50% Syringe IV PUSH PRN PRN Hypoglycemia Protocol Enoxaparin Sodium 40 mg 10/27/19 21:00 11/03/19 07:47 Lovenox SUB-Q 40 mg Q12HR [facility] Administration Escitalopram Oxalate 20 mg 10/29/19 11:00 11/03/19 07:47 Lexapro PO 20 mg QAM [facility] Administration Glucagon 1 mg 10/27/19 18:39 Glucagon For Inj IM PRN PRN Hypoglycemia Protocol Glucose 15 gm 10/27/19 18:39 Glutose 15 PO PRN PRN Hypoglycemia Protocol Hydralazine HCl 50 mg 10/30/19 15:38 10/31/19 13:13 Apresoline Tablet PO 50 mg QID PRN Administration Blood Pressure - High Dextrose 1,000 mls @ 100 mls/hr 10/27/19 18:39 Dextrose 5% 1,000 Ml IVPB PRN PRN Hypoglycemia Protocol Insulin Aspart 3 - 6 units 10/28/19 08:00 11/03/19 07:46 Novolog SUB-Q Not Given [facility] Protocol Metformin HCl 500 mg 11/01/19 17:00 11/03/19 07:46 Glucophage PO 500 mg BIDWM [facility] Administration Multivitamins/Min
[2019-11-03 14:00] VITALS: BP 146/99; BP 152/78; PULSE 94; RESP 20; TEMP 36.8; O2SAT 99
[2019-11-03 16:49] LABS: Glucose Point of Care 125 (65-105)
[2019-11-03] MEDS: VERAPAMIL HCL 180 MG TABLET ER PO (20:51)
[2019-11-03] MEDS: MULTIVITAMINS /C LUTEIN (CENTRUM SILVER) TABLET *BKC 1 TAB PO (20:51)
[2019-11-03 21:01] LABS: Glucose Point of Care 157 (65-105)
[2019-11-03 22:00] VITALS: BP 137/81; PULSE 92; RESP 18; TEMP 37.1; O2SAT 100
[2019-11-04 05:25] LABS: Basophils Percent Auto 0.5 % (0.2-1.2); Eosinophils Absolute Auto 0.1 K/mm3 (0-0.3); Eosinophils Percent Auto 1.6 % (0-4.4); Hematocrit 40.9 % (42.0-52.0); Hemoglobin 14.2 g/dL (14.0-18.0); Immature Granulocyte Absolute 0.01 K/mm3 (0.00-0.031); Immature Granulocyte Percent A 0.1 % (0-0.5); Lymphocytes Absolute Auto 2.72 K/mm3 (0.9-3.2); Lymphocytes Percent Auto 35.2 % (18.3-44.2); Mean Corpuscular HGB Conc 34.7 g/dl (32-36); Mean Corpuscular Hemoglobin 32.3 pg (26-34); Mean Corpuscular Volume 93.2 fl (80-100); Mean Platelet Volume 9.4 fl (7.4-10.4); Monocytes Absolute Auto 0.5 K/mm3 (0.1-0.6); Monocytes Percent Auto 6.1 % (2.6-8.5); Neutrophils Absolute Auto 4.4 K/mm3 (1.3-6.7); Neutrophils Percent Auto 56.5 % (45.5-73.1); Platelet Count Result 262 k/mm3 (150-375); Red Blood Count 4.39 M/mm3 (4.6-6.20); Red Cell Distribution Width 10.8 % (11.5-14.5); White Blood Count 7.7 K/mm3 (4.5-10.0)
[2019-11-04 05:37] LABS: Blood Urea Nitrogen 12 mg/dL (9-20); Calcium 9.3 mg/dL (8.4-10.2); Carbon Dioxide 27 mmol/L (22-30); Chloride 101 mmol/L (98-107); Estimated CRCL calculation 188 ml/min; Estimated Glomerular Filt Rate > 60; Glucose 158 mg/dL (75-110); Potassium 3.9 mmol/L (3.4-5.0); Sodium 136 mmol/L (137-145)
[2019-11-04 05:50] VITALS: BP 134/68; PULSE 80; RESP 18; TEMP 36.8; O2SAT 98
[2019-11-04 07:13] LABS: Glucose Point of Care 152 (65-105)
[2019-11-04 08:00] VITALS: PULSE 78; RESP 18; O2SAT 100
[2019-11-04] MEDS: ASPIRIN 81 MG CHEWABLE TABLET PO (09:41)
[2019-11-04] MEDS: amLODIPine BESYLATE 5 MG TABLET 10 MG PO (09:42)
[2019-11-04] MEDS: CLOPIDOGREL BISULFATE 75 MG TABLET PO (09:42)
[2019-11-04] MEDS: metFORMIN HCL 500 MG TABLET PO ×2 (09:42→16:58)
[2019-11-04] MEDS: ESCITALOPRAM OXALATE 10 MG TABLET 20 MG PO (09:43)
[2019-11-04] MEDS: ROSUVASTATIN 10 MG TABLET 20 MG PO (09:43)
[2019-11-04] MEDS: ENOXAPARIN 40 MG/0.4 ML SYRINGE SUB-Q (09:43)
[2019-11-04] MEDS: ACETAMINOPHEN 325 MG TABLET 650 MG PO ×2 (09:44→16:58)
[2019-11-04 11:59] LABS: Glucose Point of Care 141 (65-105)
--- NOTE | 2019-11-04 12:58 | WPDNEURORHBP ---
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 gait ataxia and also some sensory dysfunction periodically and right side of the face he continues to improve his is concerned about his blood pressure which is really decent considering that he has been hypertensive quite for some time there is also history at least family history of rheumatoid arthritis she is questioning whether not he should be tested for rheumatoid arthritis based on the family history however the present situation even if he has rheumatoid arthritis is has nothing to with that The patient has had periodic headaches for the past 20 years or so and his present headaches are the similar to what he has had in the past and I do not believe it has anything to do with the current stroke next The patient denies any vomiting his double vision if anything is much better it has always been subjective without any extraocular movement disturbance no chest pain no shortness of breath no fever no chills no sore throat Review of Systems Review of Systems: All systems reviewed & are unremarkable except as noted in HPI and below Functional Status Ambulation Ability Ability to Ambulate 10 Feet: Standby Assistance Ability to Ambulate 50 Feet With 2 Turns: Contact Guard Ability to Ambulate 150 Feet: Contact Guard Ambulation Assistive Devices: Walker, Wheeled Transfers Ability Ability to Transfer In/Out of Chair: Standby Assistance Exam Const: General: comfortable and no acute distress HENMT: General nose exam: Normal nares present Mouth: Yes moist mucous membranes Eyes: General: appearance normal, both eyes and all related structures Neck: Neck: supple and no JVD Resp: Effort & Inspection: normal respiratory effort Auscultation: clear to auscultation bilaterally Cardio: Rate: regular rate Rhythm: regular rhythm GI: GI Palp: Yes Soft to palpation Auscultation: normal bowel sounds Skin: General skin exam: normal color and no rashes or lesions noted Neuro: Other: patient is improving overall right-sided hemiparesis improving sensory disturbance if anything on the right side of the face is periodic and is nothing any worse than before Extrem: General: normal to inspection Psych: Mental Status: mental status grossly normal Objective Data Vital Signs Vital Signs: Vital Signs - 24 hr 11/03/19 14:00 11/03/19 22:00 11/04/19 05:50 Temperature 36.8 C 37.1 C 36.8 C Pulse Rate 94 92 80 Respiratory Rate 20 18 18 Blood Pressure 146/99 H 137/81 134/68 Pulse Oximetry 99 100 98 Intake/Output Intake/Output: Intake & Output 11/01/19 11/02/19 11/03/19 11/04/19 23:59 23:59 23:59 23:59 Intake Total 720 600 720 240 Balance 720 600 720 240 Meds/Results Medications: Active Medications Generic Name Dose Route Start Last Admin Trade Name Freq PRN Reason Stop Dose Admin Acetaminophen 650 mg 10/27/19 18:37 11/04/19 09:44 Tylenol Tablet PO 650 mg Q4H PRN Administration Mild Pain (1-3) Or Fever Amlodipine Besylate 10 mg 11/01/19 09:00 11/04/19 09:42 Norvasc PO 10 mg QAM WILLEM Administration Aspirin 81 mg 10/28/19 08:00 11/04/19 09:41 Aspirin Chewable PO 81 mg DAILY@0800 WILLEM Administration Clopidogrel Bisulfate 75 mg 10/28/19 09:00 11/04/19 09:42 Plavix PO 75 mg QAM WILLEM Administration Dextrose 12.5 gm 10/27/19 18:39 Dextrose 50% Syringe IV PUSH PRN PRN Hypoglycemia Protocol Escitalopram Oxalate 20 mg 10/29/19 11:00 11/04/19 09:43 Lexapro PO 20 mg QAM WILLEM Administration Glucagon 1 mg 10/27/19 18:39 Glucagon For Inj IM PRN PRN Hypoglycemia Protocol Glucose 15 gm 10/27/19 18:39 Glutose 15 PO PRN PRN Hypoglycemia Protocol Hydralazine HCl 50 mg 11/04/19 17:00 Apresoline Tablet PO
[2019-11-04 13:47] LABS: Rheumatoid Factor < 8.6 IU/ML (<12)
[2019-11-04 14:00] VITALS: BP 148/82; PULSE 80; RESP 20; TEMP 36.8; O2SAT 100
[2019-11-04] MEDS: hydrALAZINE HCL 50 MG TABLET PO (16:58)
[2019-11-04 17:10] LABS: Glucose Point of Care 130 (65-105)
[2019-11-04] MEDS: MULTIVITAMINS /C LUTEIN (CENTRUM SILVER) TABLET *BKC 1 TAB PO (20:18)
[2019-11-04 20:39] LABS: Glucose Point of Care 115 (65-105)
[2019-11-04 21:04] VITALS: BP 156/88; PULSE 86; RESP 20; TEMP 36.8; O2SAT 99
[2019-11-05 06:00] VITALS: BP 124/92; PULSE 88; RESP 18; TEMP 36.2; O2SAT 95
[2019-11-05] MEDS: ACETAMINOPHEN 325 MG TABLET 650 MG PO ×2 (06:09→17:40)
[2019-11-05 07:25] LABS: Glucose Point of Care 135 (65-105)
[2019-11-05] MEDS: amLODIPine BESYLATE 5 MG TABLET 10 MG PO (08:24)
[2019-11-05] MEDS: ENOXAPARIN 40 MG/0.4 ML SYRINGE SUB-Q (08:24)
[2019-11-05] MEDS: ESCITALOPRAM OXALATE 10 MG TABLET 20 MG PO (08:24)
[2019-11-05] MEDS: hydrALAZINE HCL 50 MG TABLET PO ×2 (08:25→17:39)
[2019-11-05] MEDS: CLOPIDOGREL BISULFATE 75 MG TABLET PO (08:25)
[2019-11-05] MEDS: ROSUVASTATIN 10 MG TABLET 20 MG PO (08:25)
[2019-11-05] MEDS: ASPIRIN 81 MG CHEWABLE TABLET PO (08:25)
[2019-11-05] MEDS: metFORMIN HCL 500 MG TABLET PO ×2 (08:25→17:40)
[2019-11-05 08:34] VITALS: PULSE 86; RESP 18; O2SAT 96
[2019-11-05 11:51] LABS: Glucose Point of Care 145 (65-105)
[2019-11-05 14:00] VITALS: BP 123/81; PULSE 91; RESP 17; TEMP 36.8; O2SAT 98
[2019-11-05 17:11] LABS: Glucose Point of Care 109 (65-105)
[2019-11-05 20:00] VITALS: PULSE 91; RESP 17; O2SAT 98
[2019-11-05] MEDS: MULTIVITAMINS /C LUTEIN (CENTRUM SILVER) TABLET *BKC 1 TAB PO (20:45)
[2019-11-05 21:13] LABS: Glucose Point of Care 128 (65-105)
[2019-11-05 22:00] VITALS: BP 133/81; PULSE 86; RESP 18; TEMP 36.4; O2SAT 100
[2019-11-06 06:00] VITALS: BP 140/81; PULSE 90; RESP 18; TEMP 36.5; O2SAT 97
[2019-11-06 07:02] LABS: Glucose Point of Care 134 (65-105)
[2019-11-06 07:04] VITALS: TEMP 36.5
[2019-11-06] MEDS: ACETAMINOPHEN 325 MG TABLET 650 MG PO (07:04)
[2019-11-06] MEDS: ASPIRIN 81 MG CHEWABLE TABLET PO (08:54)
[2019-11-06] MEDS: metFORMIN HCL 500 MG TABLET PO ×2 (08:55→17:14)
[2019-11-06] MEDS: ENOXAPARIN 40 MG/0.4 ML SYRINGE SUB-Q (08:55)
[2019-11-06] MEDS: amLODIPine BESYLATE 5 MG TABLET 10 MG PO (08:55)
[2019-11-06] MEDS: CLOPIDOGREL BISULFATE 75 MG TABLET PO (08:55)
[2019-11-06] MEDS: hydrALAZINE HCL 50 MG TABLET PO ×2 (08:56→17:14)
[2019-11-06] MEDS: ROSUVASTATIN 10 MG TABLET 20 MG PO (08:56)
[2019-11-06] MEDS: ESCITALOPRAM OXALATE 10 MG TABLET 20 MG PO (08:56)
--- NOTE | 2019-11-06 11:53 | WPDNEURORHBP ---
Subjective Date/time seen: 11/06/19 11:53 Interval history: this 44-year-old diabetic with hypertension is here after having had brainstem stroke he has done remarkably well in the rehab his dysphagia has completely gone and the right-sided weakness has significantly improved he denies any headache nausea vomiting chest pain shortness of breath fever chills sore throat blood pressure has been stable and is ready to be discharged tomorrow with outpatient therapy and follow-up appointments with the primary care physician to look into the blood pressure and also follow up with this examiner in couple of months Also told him not be driving Nelsonh comes and sees me Review of Systems Review of Systems: All systems reviewed & are unremarkable except as noted in HPI and below Functional Status Ambulation Ability Ability to Ambulate 10 Feet: Standby Assistance Ability to Ambulate 50 Feet With 2 Turns: Standby Assistance Ability to Ambulate 150 Feet: Standby Assistance Ambulation Assistive Devices: Walker, Wheeled Transfers Ability Ability to Transfer In/Out of Chair: Standby Assistance Exam Const: General: comfortable and no acute distress HENMT: General nose exam: Normal nares present Mouth: Yes moist mucous membranes Eyes: General: appearance normal, both eyes and all related structures Neck: Neck: supple and no JVD Resp: Effort & Inspection: normal respiratory effort Auscultation: clear to auscultation bilaterally Cardio: Rate: regular rate Rhythm: regular rhythm GI: GI Palp: Yes Soft to palpation Auscultation: normal bowel sounds Skin: General skin exam: normal color and no rashes or lesions noted Neuro: Other: patient is awake alert oriented normal speech and language function and significantly improved overall neurological status Extrem: General: normal to inspection Psych: Mental Status: mental status grossly normal Objective Data Vital Signs Vital Signs: Vital Signs - 24 hr 11/05/19 14:00 11/05/19 20:00 11/05/19 22:00 Temperature 36.8 C 36.4 C Pulse Rate 91 91 86 Respiratory Rate 17 17 18 Blood Pressure 123/81 133/81 Pulse Oximetry 98 98 100 11/06/19 06:00 11/06/19 07:04 Temperature 36.5 C 36.5 C Pulse Rate 90 Respiratory Rate 18 Blood Pressure 140/81 Pulse Oximetry 97 Intake/Output Intake/Output: Intake & Output 11/03/19 11/04/19 11/05/19 11/06/19 23:59 23:59 23:59 23:59 Intake Total 720 720 640 240 Balance 720 720 640 240 Meds/Results Medications: Active Medications Generic Name Dose Route Start Last Admin Trade Name Freq PRN Reason Stop Dose Admin Acetaminophen 650 mg 10/27/19 18:37 11/06/19 07:04 Tylenol Tablet PO 650 mg Q4H PRN Administration Mild Pain (1-3) Or Fever Amlodipine Besylate 10 mg 11/01/19 09:00 11/06/19 08:55 Norvasc PO 10 mg QAM WILLEM Administration Aspirin 81 mg 10/28/19 08:00 11/06/19 08:54 Aspirin Chewable PO 81 mg DAILY@0800 WILLEM Administration Clopidogrel Bisulfate 75 mg 10/28/19 09:00 11/06/19 08:55 Plavix PO 75 mg QAM WILLEM Administration Dextrose 12.5 gm 10/27/19 18:39 Dextrose 50% Syringe IV PUSH PRN PRN Hypoglycemia Protocol Enoxaparin Sodium 40 mg 11/05/19 09:00 11/06/19 08:55 Lovenox SUB-Q 40 mg DAILY WILLEM Administration Escitalopram Oxalate 20 mg 10/29/19 11:00 11/06/19 08:56 Lexapro PO 20 mg QAM WILLEM Administration Glucagon 1 mg 10/27/19 18:39 Glucagon For Inj IM PRN PRN Hypoglycemia Protocol Glucose 15 gm 10/27/19 18:39 Glutose 15 PO PRN PRN Hypoglycemia Protocol Hydralazine HCl 50 mg 11/04/19 17:00 11/06/19 08:56 Apresoline Tablet PO 50 mg BID WILLEM Administration Dextrose 1,000 mls @ 100 mls/hr 10/27/19 18:39 Dextrose 5% 1,000 Ml IVPB PRN PRN Hypoglycemia Protocol Insulin Aspart 3 - 6 units 10/28/19 08:00 11/06/19 08:55 Novolog SUB-Q Not Given TIDWM
[2019-11-06 12:19] LABS: Glucose Point of Care 144 (65-105)
[2019-11-06 14:00] VITALS: BP 133/85; PULSE 97; RESP 20; TEMP 36.2; O2SAT 99
[2019-11-06 14:12] VITALS: BP 170/80
[2019-11-06 18:17] LABS: Glucose Point of Care 118 (65-105)
[2019-11-06] MEDS: MULTIVITAMINS /C LUTEIN (CENTRUM SILVER) TABLET *BKC 1 TAB PO (20:14)
[2019-11-06 22:00] VITALS: BP 135/78; PULSE 92; RESP 18; TEMP 36.6; O2SAT 99
[2019-11-07] MEDS: ACETAMINOPHEN 325 MG TABLET 650 MG PO (01:54)
[2019-11-07 04:27] LABS: Glucose Point of Care 135 (65-105)
[2019-11-07 06:00] VITALS: BP 142/80; PULSE 78; RESP 18; TEMP 36.7; O2SAT 97
[2019-11-07 06:57] LABS: Glucose Point of Care 130 (65-105)
[2019-11-07] MEDS: amLODIPine BESYLATE 5 MG TABLET 10 MG PO (08:34)
[2019-11-07] MEDS: ASPIRIN 81 MG CHEWABLE TABLET PO (08:34)
[2019-11-07] MEDS: metFORMIN HCL 500 MG TABLET PO (08:34)
[2019-11-07] MEDS: CLOPIDOGREL BISULFATE 75 MG TABLET PO (08:35)
[2019-11-07] MEDS: ESCITALOPRAM OXALATE 10 MG TABLET 20 MG PO (08:35)
[2019-11-07] MEDS: hydrALAZINE HCL 50 MG TABLET PO (08:35)
[2019-11-07] MEDS: ENOXAPARIN 40 MG/0.4 ML SYRINGE SUB-Q (08:35)
[2019-11-07] MEDS: ROSUVASTATIN 10 MG TABLET 20 MG PO (08:35)
[2019-11-10 11:40] LABS: Anti Nuclear Antibody Titer 1:40 (Negative)
--- NOTE | 2019-11-13 14:19 | DS_ITS ---
DATE OF DISCHARGE: 11/07/2019 DISCHARGE ACUTE REHAB DIAGNOSIS: Primary rehab impairment category of stroke with etiological diagnosis of acute infarct in the right posterior lateral medulla and the distribution of the right posterior inferior cerebral artery. DISCHARGE ACTIVE COMORBID CONDITIONS: 1. Diabetes mellitus. 2. Hyperlipidemia. 3. Hypertension. 4. Obstructive sleep apnea. 5. Anxiety. REASON FOR ADMISSION: A 44-year-old right-handed female who presented to [facility] Emergency Room on 10/22/2019 with a complaint of right-sided weakness along with slurred speech. In the emergency room, her blood pressure was 159/103, there was confusion and double vision in the left lateral base, also leaning to her right side in addition to choking on her oral intake. Initial CT scan of the head was normal. Chest x-ray was negative. Brain MRI reveals a small area of increase in T2 varying signal intensity in the left frontal lobe which was obviously clinically not responsible for the patient's symptomatology. CTA of the head and neck was done which revealed no innervation, no significant retinal artery stenosis. The echocardiogram documented 65%-70% ejection traction with left ventricular diastolic function and normal sinus rhythm. On speech evaluation, she was found to have laryngeal poor control. She was started on Plavix 75 mg daily for 3 weeks. However, the patient was still unable to swallow aspirin and Lovenox. Lovenox was given for the time being. On 11/01, she was readmitted for the further evaluation. Repeat MRI was done at that time, it was consistent with acute infarct of the right posterior lateral medulla in the distribution of posterior inferior cerebellar artery, that is PICA. Still there was signal abnormality in the left frontal lobe as well. Bubble study on echocardiogram was normal. She was evaluated with the Physical Therapy and Occupation Therapy for modified barium swallow and was transferred to the acute rehab for further care. She has not traveled outside the [place] or outside of the state where the more cases of the COVID and she has no initial or remote contact with a COVID patient. LEVEL OF FUNCTION AT THE TIME OF ADMISSION: The patient was independent in eating, required supervision for oral hygiene; supervision for bathing, upper body dressing; partial assistance for lower body dressing; supervision for footwear, rolling in bed. He was independent for sit to lying and lying to sit, required partial assistance for sit to stand and chair transfer, supervision for toilet transfer, partial assistance for car transfer. Walking 10 feet, 50 feet with 2 turns, 150 feet, 10 feet on uneven surfaces, curb or step, 4 steps, 12 steps, and picking up object, wheelchair was not applicable. ANTICIPATED REHAB GOALS AT THE TIME OF ADMISSION: Were to make him independent in all the modalities. LEVEL OF FUNCTION AT THE TIME DISCHARGE: Patient became independent eating, oral hygiene, required only setup for the toileting, supervision for bathing, setup for the upper body dressing, supervision for lower body dressing. He became independent footwear, rolling in bed, sit to lying, lying to sit, sit to stand, required only supervision for chair transfer, setup for the toilet transfer, became independent car transfer. He required supervision for walking 10 feet, 50 feet with 2 turns, 150 feet, 10 feet on uneven surfaces, curb or step, 4 steps, 12 steps, picking up object. HOSPITAL COURSE: During the hospitalization, he was involved in physical therapy and occupation therapy on a regular basis. He was followed by the hospitalist as well. At the time of discharge, his general physical examination was normal, as the neurological examination which was improving. His vital signs were stable. He was af
== END 2019-11-07 11:05 | disposition home or self-care (01) | DRG 57 ==
PROVIDERS: Admitting Provider Psychiatry & Neurology Neurology; PCP Family Medicine; Visit Provider Psychiatry & Neurology Neurology
DX: I69.351 Hemiplegia and hemiparesis following cerebral infarction affecting right dominant side (principal); I69.392 Facial weakness following cerebral infarction; I69.322 Dysarthria following cerebral infarction; I69.391 Dysphagia following cerebral infarction; I69.393 Ataxia following cerebral infarction; I69.398 Other sequelae of cerebral infarction; H53.8 Other visual disturbances; R49.0 Dysphonia; R13.10 Dysphagia, unspecified; H53.2 Diplopia; G47.33 Obstructive sleep apnea (adult) (pediatric); E11.9 Type 2 diabetes mellitus without complications; E78.5 Hyperlipidemia, unspecified; I10 Essential (primary) hypertension; F41.9 Anxiety disorder, unspecified; J43.9 Emphysema, unspecified; Z91.19 Patient's noncompliance with other medical treatment and regimen; Z79.82 Long term (current) use of aspirin; Z79.84 Long term (current) use of oral hypoglycemic drugs; Z79.4 Long term (current) use of insulin
CPT/HCPCS: 36415; 80048; 80061; 83036; 85025; 86038; 86039; 86430; 92507; 92523; 92526; 92610; 97110; 97116; 97161; 97165; 97530; 97535; A9270; J1650

== ENCOUNTER 2019-11-09 09:54 | Outpatient (RCR) | payer OTHER, SELFPAY ==
--- NOTE | 2019-11-09 11:07 | OTOPEVAL ---
Thank you for referring Shawn Burden to [facility]. Please review, sign, date and return this plan of care BALWINDER. I agree with and certify that the following plan of care is medically necessary. Referring Physician Date Admitting Provider: Attending Provider: Becky Thompson MD Referring Provider: *OT Outpatient Evaluation Start: 11/09/19 10:04 Freq: Status: Active Protocol: Document 11/09/19 10:04 [facility] (Rec: 11/09/19 11:01 [facility] [id number]) Therapy Assessment Status Assessment Status Assessment Status Evaluation Outpatient Past Medical History Neurological History Hx Cerebrovascular Accident (CVA) Yes: Possible CVA 10/22/2019 Hx Migraine Yes Cardiovascular History Hx Hypercholesterolemia Yes Hx Hypertension Yes Respiratory History Hx Sleep Apnea Yes: has used Cpap in past Gastrointestinal History Hx Gastrointestinal Disorders No Significant History Genitourinary History Hx Genitourinary Disorders No Significant History Musculoskeletal History Hx Musculoskeletal Disorders No Significant History Hematological History Hx Hematological Disorders No Significant History Endocrine History Hx Diabetes Yes HEENT History Hx Other HEENT Disorders Yes: Wears glasses Integumentary History Hx Skin Disorders No Significant History Reproductive History Hx Reproductive Disorders No Significant History Psychosocial History Hx Anxiety Yes: Lexapro Pain History History of Any Previous or Ongoing No Significant History Instance of Pain Anesthesia History Hx Anesthesia Reactions No Significant History Evaluation Information Problem Diagnosis R sided weakness Onset 10/22/19 Cause CVA Subjective Information Patient reports that he had a Query Text:As Reported By Patient/ stroke on 10/22/19 and Family transitioned to inpatient rehab at [facility] where he was discharged on 11/07/19. Patient reports that his primary concerns are leaning to the right when walking. Initially, patient had difficulty with swallowing but he reports it is normal and he is on a normal diet. Patient reports some vision issues but states it is getting better. Patient reports independence with self care skills. Patient reports
--- NOTE | 2019-11-09 12:52 | PTOPEVAL ---
Thank you for referring Shawn Burden to [facility]. Please review, sign, date and return this plan of care BALWINDER. I agree with and certify that the following plan of care is medically necessary. Referring Physician Date Admitting Provider: Attending Provider: Becky Thompson MD Referring Provider: *PT Outpatient Evaluation Start: 11/09/19 11:01 Freq: Status: Active Protocol: Document 11/09/19 11:01 [facility] (Rec: 11/09/19 11:57 [facility] [id number]) Therapy Assessment Status Assessment Status Assessment Status Evaluation Outpatient Past Medical History Neurological History Hx Cerebrovascular Accident (CVA) Yes: Possible CVA 10/22/2019 Hx Migraine Yes Cardiovascular History Hx Hypercholesterolemia Yes Hx Hypertension Yes Respiratory History Hx Sleep Apnea Yes: has used Cpap in past Gastrointestinal History Hx Gastrointestinal Disorders No Significant History Genitourinary History Hx Genitourinary Disorders No Significant History Musculoskeletal History Hx Musculoskeletal Disorders No Significant History Hematological History Hx Hematological Disorders No Significant History Endocrine History Hx Diabetes Yes HEENT History Hx Other HEENT Disorders Yes: Wears glasses Integumentary History Hx Skin Disorders No Significant History Reproductive History Hx Reproductive Disorders No Significant History Psychosocial History Hx Anxiety Yes: Lexapro Pain History History of Any Previous or Ongoing No Significant History Instance of Pain Anesthesia History Hx Anesthesia Reactions No Significant History Evaluation Information Problem Diagnosis CVA Onset 10/22/19 Subjective Information Pt. reports that he woke in Query Text:As Reported By Patient/ the night and noticed some Family symptoms of numbness in his face. He reports he attempted to stand and was falling to the right. He reports that he was at [facility] in the [facility] for about 1 1/2 weeks. He states that he continues to struggle with balance since returning home. He reports that his symptoms have improved. He reports that he still falls to the right and states that he is using a walker at all times. He reports that his goal is to be abl
--- NOTE | 2019-12-09 17:03 | PTOPEVAL ---
Thank you for referring Shawn Burden to [facility] [place].? The patient is scheduled to be seen for therapy? ____x/week for ___ weeks. Please review, sign, date and return this plan of care BALWINDER. I agree with and certify that the following plan of care is medically necessary. Referring Physician Date Admitting Provider: Attending Provider: Becky Thompson MD Referring Provider: *PT Outpatient Evaluation Start: 11/09/19 11:01 Freq: Status: Active Protocol: Document 12/09/19 16:00 [facility] (Rec: 12/09/19 17:01 [facility] [id number]) Therapy Assessment Status Assessment Status Assessment Status Re-evaluation Outpatient Past Medical History Neurological History Hx Cerebrovascular Accident (CVA) Yes: Possible CVA 10/22/2019 Hx Migraine Yes Cardiovascular History Hx Hypercholesterolemia Yes Hx Hypertension Yes Respiratory History Hx Sleep Apnea Yes: has used Cpap in past Gastrointestinal History Hx Gastrointestinal Disorders No Significant History Genitourinary History Hx Genitourinary Disorders No Significant History Musculoskeletal History Hx Musculoskeletal Disorders No Significant History Hematological History Hx Hematological Disorders No Significant History Endocrine History Hx Diabetes Yes HEENT History Hx Other HEENT Disorders Yes: Wears glasses Integumentary History Hx Skin Disorders No Significant History Reproductive History Hx Reproductive Disorders No Significant History Psychosocial History Hx Anxiety Yes: Lexapro Pain History History of Any Previous or Ongoing No Significant History Instance of Pain Anesthesia History Hx Anesthesia Reactions No Significant History Evaluation Information Problem Diagnosis s/p CVA Subjective Information patient reports he feels he is Query Text:As Reported By Patient/ getting better, but still Family struggles the most with his balance and walking. Pain Assessment Timing of Pain Assessment Timing of Pain Assessment Assessment Self Report Self Report Pain Level 0 Pain Score Pain Score 0: Self Report Lower Extremity Muscle Strength Testing General Lower Extremity Strength Gross Lower Extremity Strength 5/5 bilateral LE strength Gait Assessment Gait Assessment Additional Ambulation Comments patient presents with deficits in ambulation path stability. he frequently stumbles to the R and wathces his feet during ambulation. patient is severely unsteady with ambulation on uneven surfaces (
== END 2020-01-08 13:51 | disposition home or self-care (01) ==
LOC: CHSOT 09:54
PROVIDERS: PCP Family Medicine; Visit Provider Family Medicine
DX: R26.9 Unspecified abnormalities of gait and mobility (principal); I63.9 Cerebral infarction, unspecified
CPT/HCPCS: 97110; 97112; 97116; 97161; 97165; 97530

== ENCOUNTER 2019-11-10 11:38 | Outpatient (CLI) | payer OTHER, SELFPAY ==
[2019-11-10 12:24] LABS: Anion Gap 10.3 mmol/L (7-16); Blood Urea Nitrogen 12 mg/dL (7-18); Calcium 9.5 mg/dL (8.5-10.1); Carbon Dioxide 30 mmol/L (21-32); Chloride 101 mmol/L (98-108); Estimated Glomerular Filt Rate > 60; Glucose 194 mg/dL (70-99); Osmolality Calculated 288 mOsm/kg (285-295); Potassium 4.3 mmol/L (3.5-5.1); Sodium 137 mmol/L (136-145)
== END 2019-11-10 11:39 | disposition home or self-care (01) ==
PROVIDERS: PCP Family Medicine
DX: E11.65 Type 2 diabetes mellitus with hyperglycemia (principal)
CPT/HCPCS: 36415; 80048

== ENCOUNTER 2019-11-23 15:56 | Outpatient (CLI) | payer OTHER, SELFPAY ==
[2019-11-23 16:26] LABS: Partial Thromboplastin Time 29.4 SEC (22.3-31.6)
[2019-11-23 17:15] LABS: Erythrocyte Sedimentation Rate 20 mm/hr (0-15)
[2019-11-26 05:45] LABS: Anti Cardio Antibody IgM <12 MPL (<=12); Anti Cardiolipin Antibody IgA <11 APL (<=11); Anti Cardiolipin Antibody IgG <14 GPL (<=14)
[2019-11-26 18:44] LABS: Hepatitis A Antibody IgM Nonreactive; Hepatitis B Core Antibody Nonreactive (Nonreactive); Hepatitis B Surface Antigen Nonreactive (Nonreactive); Hepatitis C Signal to Cutoff 0.01 ratio (<1.00); Hepatitis C Virus Antibody Nonreactive (Nonreactive)
== END 2019-11-23 15:57 | disposition home or self-care (01) ==
LOC: CHSLAB 15:58
PROVIDERS: PCP Family Medicine; Visit Provider Family Medicine
DX: R76.8 Other specified abnormal immunological findings in serum (principal); Z82.61 Family history of arthritis; I63.9 Cerebral infarction, unspecified
CPT/HCPCS: 36415; 80074; 85652; 85730; 86146; 86147

== ENCOUNTER 2019-12-24 08:02 | Outpatient (CLI) | payer OTHER, SELFPAY ==
[2019-12-24 08:22] LABS: Add Urine Microscopic? NO; Appearance Urine Clear (Clear); Bilirubin Urine Negative (Negative); Blood Urine Negative (Negative); Color Urine Yellow (Yellow); Glucose Urine UA Negative (Negative); Ketones Urine Negative (Negative); Leukocyte Esterase Ur Negative (Negative); Nitrate Urine Negative (Negative); Protein Urine Negative (Negative); Urobilinogen Urine 0.2 mg/dL (0.2-1.0); pH Urine 5.5 (5.0-8.0)
== END 2019-12-24 08:03 | disposition home or self-care (01) ==
LOC: CHSLAB 08:04
PROVIDERS: PCP Family Medicine; Visit Provider Family Medicine
DX: R82.90 Unspecified abnormal findings in urine (principal)
CPT/HCPCS: 81003

== ENCOUNTER 2020-02-06 00:45 | Outpatient (CLI) | payer OTHER, SELFPAY ==
[2020-02-06 18:04] LABS: SARS-CoV-2 RNA PCR Negative
== END 2020-02-06 00:46 | disposition home or self-care (01) ==
LOC: ANHCOVIDDT 00:45
PROVIDERS: PCP Family Medicine; Visit Provider Internal Medicine Cardiovascular Disease
DX: Z01.812 Encounter for preprocedural laboratory examination (principal); Z20.828 Contact with and (suspected) exposure to other viral communicable diseases
CPT/HCPCS: 87635; C9803; U0003

== ENCOUNTER 2020-02-09 00:48 | Day surgery (SDC) | payer OTHER, SELFPAY ==
[2020-02-08 14:32] VITALS: BMI 34.7
[2020-02-09] VITALS (9 sets, daily range): BP systolic 127–139; BP diastolic 92–108; PULSE 92–100; RESP 10–23; TEMP 36.3–36.4; O2SAT 93–98
--- NOTE | 2020-02-09 14:06 | WPDHPUPDATE1 ---
History and Physical Update Update Date/Time: 02/09/20 14:06 History and Physical has been reviewed, including an updated exam of the patient. There are NO changes in the patient's condition. Risks, benefits, and alternatives have been discussed and questions answered. Patient agrees to proceed with procedure.
--- NOTE | 2020-02-09 14:06 | WPDMODSED ---
Moderate Sedation Note-Pt Data Patient Data Diagnosis: REcent stroke Present Complaint: Recent stroke Procedure to be performed/Plan: Conscious sedation KASIA Allergies Allergy/AdvReac Type Severity Reaction Status Date / Time No Known Allergies Allergy Verified 01/20/20 10:54 Home Medications Medication Instructions Recorded Confirmed Type CertaVite Senior-Antioxidant 1 tab PO HS 30 Days tablet 10/27/19 02/08/20 Rx acetaminophen [Mapap 650 mg PO Q4H PRN #30 tablet 10/27/19 02/08/20 Rx (acetaminophen)] aspirin [Children's Aspirin] 81 mg PO DAILY@0800 #30 tablet 10/27/19 02/08/20 Rx amlodipine 5 mg tablet 10 mg PO QAM #60 tablet 11/20/19 02/08/20 Rx clopidogrel 75 mg tablet 75 mg PO QAM #30 tablet 11/20/19 02/08/20 Rx escitalopram oxalate 10 mg tablet 20 mg PO QAM #30 tablet 11/20/19 02/08/20 Rx hydralazine 50 mg tablet 50 mg PO BID #60 tablet 11/20/19 02/08/20 Rx lidocaine 5 % topical cream 1 applic TOPICAL BID PRN #45 gm 11/20/19 02/08/20 Rx metformin 500 mg tablet 1,000 mg PO BID tablet 11/20/19 02/08/20 History rosuvastatin 10 mg tablet 20 mg PO QAM 30 Days #60 tablet 11/20/19 02/08/20 Rx mirtazapine 15 mg tablet 15 mg PO DAILY #30 tablet 12/15/19 02/08/20 Rx amitriptyline 25 mg tablet 75 mg PO DAILY #90 tablet 12/29/19 02/08/20 Rx glimepiride 1 mg tablet See Rx Instructions PO .COMPLEX 01/18/20 02/08/20 History gabapentin 300 mg tablet,extended 300 mg PO QID tablet 01/22/20 02/08/20 History release 24 hr Current Medications: Active Medications Sodium Chloride (Normal Saline Iv) 1,000 mls @ 30 mls/hr IV CONT .Q24H WILLEM Sedation/Anesthesia: No previous sedation/anesthesia problems (including family history). [facility] Past Medical History Medical History Anxiety Diabetes HLD (hyperlipidemia) Hypertension Insomnia Normal colonoscopy (~2016) SERENA (obstructive sleep apnea) noncomplaint Sinus tachycardia seen on sole stitcher hand Family History Family History Father Hypertension Diabetes mellitus Heart disease Hyperlipidemia Other malignant neoplasm without specification of site Grandparent Carcinoma of colon Mother Hyperlipidemia Hypertension Diabetes mellitus Heart disease Sibling Diabetes mellitus Rheumatoid arthritis Social History Social History Social History: Patient is lifelong nonsmoker. No drug use. Rare alcohol use. He is a full code. Nominates his to be the individual would make medical decisions for him if he is not able. Smoking status: Never smoker Second hand tobacco smoke exposure: No Alcohol intake: never Substance use: never Substance use type: does not use Living arrangements: with family Gender identity (if verbalized by the patient): Male Spiritual care concerns: No Mod Sed Physical Exam Physical Exam Pre Procedural Exam: Normal: Appearance, Eyes, Ears, Nose, Neck, Throat, Airway, Lungs, Heart Size, Heart Rate, Heart Rhythm, Neuro Exam, Abdomen, Liver, Extremities and Skin Hours since solid foods: 12 Hours since liquid intake: 12 Internal Medicine - PN: Obj Da Vital Signs Vital Signs: Vital Signs - 24 hr 02/09/20 12:48 Temperature 97.4 F L Pulse Rate 100 Respiratory Rate 14 Blood Pressure 135/95 H Pulse Oximetry 98 Meds/Results Medications: Active Medications Generic Name Dose Route Start Last Admin Trade Name Freq PRN Reason Stop Dose Admin Sodium Chloride 1,000 mls @ 30 mls/hr 02/09/20 06:00 Normal Saline Iv IV CONT .Q24H [facility] ASA Classification/Sedation ASA Classification/Sedation ASA Class: II Risks: Risks, benefits and alternatives explained and patient/family accepted plan for sedation. Patient re-evaluated immediately prior to sedation.
--- NOTE | 2020-02-09 14:33 | P.OP_ITS ---
Procedure Note - Detailed Date of procedure: 02/09/20 Pre-op diagnosis: stroke Post-op diagnosis: same Procedure performed: conscious sedation Transesophageal echo Description of procedure: Conscious sedation: Assessment: The patient has no history of anesthesia problems. The patient's oropharynx is clear. The patient was deemed to be a good candidate for conscious sedation. The patient had continuous hemodynamic and oximetric mo nitoring during the procedure. Start time: 14 13 Completion time: 14 30 Total conscious sedation time: 17 minutes Medications Used: Versed 4 mg, fentanyl 50 mcg IV push Trained observer: Sebastián Peañloza RN Outcome: The patient tolerated the procedure well with no complications. Procedure: After informed consent the patient had Hurricaine spray the hypopharynx. The patient had conscious sedation as described above. The transesophageal echo probe was introduced in the esophagus without difficulty. Imaging was obtained in multiplane views. Agitated saline was injected to evaluate for intracardiac shunting. The patient tolerated the procedure well with no complications. Findings: The left atrium was normal. There is no thrombus present in the left atrium or left atrial appendage. The atrial septum appeared intact. Mitral valve appeared normal, with no stenosis or prolapse. The left ventricle had had normal size and thickness with good contractility of all segments. The ejection fraction is estimated to be: 60%. The aortic root and valve were normal. The ascending aorta, aortic arch and descending thoracic aorta were normal, with no atherosclerosis. The right atrium, tricuspid valve, right ventricle, pulmonic valve and pulmonic artery were all normal. There is no pericardial effusion. When agitated saline was injected intravenously there was no evidence of i ntracardiac shunting during normal respiration, cough and Valsalva. Colorflow Doppler Findings:Trivial MR Anesthesia: local Surgeon: Amina Stuart MD Estimated blood loss (mL): 0 Drains: No Packing: No Pathology: none sent Complications: No immediate complications Condition: stable Disposition: no change Findings: No valve disease Normal left ventricular function, EF 60% No masses or thrombi Normal aorta Negative bubble study Recommendation: Okay to discontinue Plavix Continue aspirin and statin, blood pressure and diabetes control.
--- NOTE | 2020-02-09 14:33 | PM.OP ---
Procedure Note - Brief Procedure Note - Brief Date of procedure: 02/09/20 Pre-op diagnosis: stroke Post-op diagnosis: same Procedure performed: conscious sedation transesophageal echo Description of procedure: uneventful transesophageal echo Anesthesia: local ( and conscious sedation) Surgeon: Amina Stuart MD Findings: unremarkable transesophageal echo, negative bubble study
[2020-02-09 15:18] LABS: Glucose Point of Care 115 (65-105)
--- NOTE | 2020-02-09 15:28 | SUR.PHASEII ---
Pt. and spouse given post-procedure discharge education. Pt. and spouse verbalize understanding of discharge education. Pt. escorted to private vehicle via wheelchair in no apparent distress.
== END 2020-02-09 15:30 | disposition home or self-care (01) ==
PROVIDERS: PCP Family Medicine; Visit Provider Internal Medicine Cardiovascular Disease
PROC: (CPT 93312; principal; 2020-02-09 13:30)
DX: I63.9 Cerebral infarction, unspecified (principal); I10 Essential (primary) hypertension; E78.5 Hyperlipidemia, unspecified; E11.9 Type 2 diabetes mellitus without complications; G47.33 Obstructive sleep apnea (adult) (pediatric); F41.9 Anxiety disorder, unspecified; Z79.02 Long term (current) use of antithrombotics/antiplatelets; Z79.84 Long term (current) use of oral hypoglycemic drugs
CPT/HCPCS: 93312; 93320; 93325; J2250; J3010; J7040

== ENCOUNTER 2020-03-03 07:30 | Outpatient (CLI) | payer OTHER, SELFPAY ==
[2020-03-03 08:40] LABS: Hemoglobin A1C 6.3 % (<5.7)
[2020-03-03 09:21] LABS: Alanine Aminotransferase 34 U/L (16-63); Albumin Level 3.9 g/dL (3.4-5.0); Alkaline Phosphatase 116 U/L (46-116); Anion Gap 9 mmol/L (8-16); Aspartate Amino Transferase 20 U/L (15-37); Bilirubin,Total 0.2 mg/dL (0.00-1.00); Blood Urea Nitrogen 11 mg/dL (7-18); Calcium 8.3 mg/dL (8.5-10.1); Carbon Dioxide 29 mmol/L (21-32); Chloride 103 mmol/L (98-108); Cholesterol 131 mg/dL (0-200); Estimated Glomerular Filt Rate > 60; Glucose 150 mg/dL (70-99); HDL Direct 39 mg/dL (40-60); LDL Cholesterol Calculated -1 mg/dL (<130); Osmolality Calculated 294 mOsm/kg (285-295); Potassium 4.3 mmol/L (3.5-5.1); Sodium 141 mmol/L (136-145); Total Protein 7.4 g/dL (6.4-8.2); Triglycerides 463 mg/dL (0-150)
[2020-03-03 09:33] LABS: LDL Cholesterol Direct 45 mg/dL (0-130)
[2020-03-07 06:44] LABS: Homocysteine 5.7 umol/L (<11.4)
[2020-03-07 10:57] LABS: Protein S Antigen, Total 99 % normal (70-140)
[2020-03-07 14:17] LABS: Protein C Antigen 102 % (70-140)
[2020-03-07 22:12] LABS: Thrombin Time 17 sec (13-19)
== END 2020-03-03 07:31 | disposition home or self-care (01) ==
LOC: CHSLAB 07:35
PROVIDERS: Physician Assistant; PCP Family Medicine; Visit Provider Internal Medicine Endocrinology, Diabetes & Metabolism
DX: E11.65 Type 2 diabetes mellitus with hyperglycemia (principal); R00.0 Tachycardia, unspecified; I63.9 Cerebral infarction, unspecified
CPT/HCPCS: 36415; 80053; 80061; 81241; 83036; 83090; 83721; 84443; 85302; 85303; 85305; 85306; 85670

== ENCOUNTER 2020-06-22 07:36 | Outpatient (CLI) | payer OTHER, SELFPAY ==
[2020-06-22 09:19] LABS: Alanine Aminotransferase 43 U/L (16-63); Alkaline Phosphatase 101 U/L (46-116); Anion Gap 9 mmol/L (8-16); Aspartate Amino Transferase 23 U/L (15-37); Bilirubin,Total 0.4 mg/dL (0.00-1.00); Blood Urea Nitrogen 17 mg/dL (7-18); Calcium 8.9 mg/dL (8.5-10.1); Carbon Dioxide 29 mmol/L (21-32); Chloride 102 mmol/L (98-108); Cholesterol 164 mg/dL (0-200); Estimated Glomerular Filt Rate > 60; Glucose 141 mg/dL (70-99); HDL Direct 43 mg/dL (40-60); LDL Cholesterol Calculated 58 mg/dL (<130); Osmolality Calculated 293 mOsm/kg (285-295); Potassium 4.4 mmol/L (3.5-5.1); Sodium 140 mmol/L (136-145); Total Protein 7.7 g/dL (6.4-8.2); Triglycerides 314 mg/dL (0-150); Vitamin B12 585 pg/mL (193-986)
== END 2020-06-22 07:37 | disposition home or self-care (01) ==
PROVIDERS: PCP Family Medicine; Visit Provider Internal Medicine Endocrinology, Diabetes & Metabolism
DX: E11.65 Type 2 diabetes mellitus with hyperglycemia (principal)
CPT/HCPCS: 36415; 80053; 80061; 82607

== ENCOUNTER 2020-08-10 08:04 | Outpatient (CLI) | payer OTHER, SELFPAY ==
[2020-08-10 09:19] LABS: Anion Gap 6 mmol/L (8-16); Blood Urea Nitrogen 14 mg/dL (7-18); Calcium 9.1 mg/dL (8.5-10.1); Carbon Dioxide 29 mmol/L (21-32); Chloride 103 mmol/L (98-108); Estimated Glomerular Filt Rate > 60; Glucose 134 mg/dL (70-99); Osmolality Calculated 288 mOsm/kg (285-295); Potassium 4.7 mmol/L (3.5-5.1); Sodium 138 mmol/L (136-145)
== END 2020-08-10 08:05 | disposition home or self-care (01) ==
LOC: CHSLAB 08:06
PROVIDERS: PCP Family Medicine; Visit Provider Internal Medicine Endocrinology, Diabetes & Metabolism
DX: E11.65 Type 2 diabetes mellitus with hyperglycemia (principal)
CPT/HCPCS: 36415; 80048

== ENCOUNTER 2020-11-17 08:12 | Outpatient (CLI) | payer OTHER, SELFPAY ==
[2020-11-17 08:44] LABS: Creatinine Urine 92.73 mg/dL (40-278); Microalbumin Urine Random < 13.0 mg/L
[2020-11-17 09:15] LABS: Thyroid Stimulating Hormone Reflex 2.67 u/IU/mL (0.36-3.74)
== END 2020-11-17 08:13 | disposition home or self-care (01) ==
LOC: CHSLAB 08:14
PROVIDERS: PCP Family Medicine; Visit Provider Internal Medicine Endocrinology, Diabetes & Metabolism
DX: E11.65 Type 2 diabetes mellitus with hyperglycemia (principal)
CPT/HCPCS: 36415; 82043; 83036; 84443

== ENCOUNTER 2021-04-17 12:30 | Outpatient (CLI) | payer OTHER, SELFPAY ==
[2021-04-17 13:52] LABS: SARS-CoV-2 RNA PCR Negative (Negative)
== END 2021-04-17 12:31 | disposition home or self-care (01) ==
LOC: CHSLAB 12:33
PROVIDERS: Visit Provider Physician Assistant
DX: J06.9 Acute upper respiratory infection, unspecified (principal); Z20.822 Contact with and (suspected) exposure to COVID-19
CPT/HCPCS: C9803; U0003; U0005

== ENCOUNTER 2024-03-24 01:15 | Day surgery (SDC) | payer OTHER, SELFPAY ==
[2024-03-16 09:23] VITALS: BMI 33.4
[2024-03-24 07:23] VITALS: BP 131/73; PULSE 79; RESP 16; TEMP 36.1; O2SAT 99; BMI 34.0
[2024-03-24] MEDS: LACTATED RINGERS 1,000 ML 150 ML IV CONT (07:26)
[2024-03-24 07:42] LABS: Glucose Point of Care 136 mg/dl (65-105)
--- NOTE | 2024-03-24 07:47 | P.HP_ITS ---
History of Present Illness History of Present Illness Consent: Risks, benefits, and alternatives have been discussed and questions answered. Patient agrees to proceed with procedure. Chief complaint: Neoplasm screening Narrative: Shawn Burden is a 48 year old male here for screening colonoscopy, last one 2015 Review of Systems Review of Systems: All systems reviewed & are unremarkable except as noted in HPI and below PMFSH Past Medical History Medical History (Updated 03/24/24 @ 07:49 by Eliseo Vasquez MD) Colon cancer screening Colon polyp Insomnia Sinus tachycardia seen on cardiac catheterization technologist SERENA (obstructive sleep apnea) noncomplaint Normal colonoscopy (~2016) HLD (hyperlipidemia) Anxiety Diabetes Hypertension Surgical History Surgical History No pertinent past surgical history Family History Family History Father Hypertension Diabetes mellitus Heart disease Hyperlipidemia Other malignant neoplasm without specification of site Grandparent Carcinoma of colon Mother Hyperlipidemia Hypertension Diabetes mellitus Heart disease Sibling Diabetes mellitus Rheumatoid arthritis Social History Social History Social History: Patient is lifelong nonsmoker. No drug use. Rare alcohol use. He is a full code. Nominates his to be the individual would make medical decisions for him if he is not able. Smoking status: Never smoker Second hand tobacco smoke exposure: No Alcohol intake: never Substance use: never Substance use type: does not use Living arrangements: with family Gender identity (if verbalized by the patient): Male Spiritual care concerns: No Meds Home Medications and Allergies Home Medications ?Medication ?Instructions ?Recorded ?Confirmed ?Type aspirin 81 mg chewable tablet 81 mg PO DAILY@0800 #30 tabs 10/27/19 03/24/24 Rx (Children's Aspirin) fifhlkuy-wfd-[id number] acid 0.4 1 tab PO HS 30 days 10/27/19 03/24/24 Rx mg-lycopene 300 mcg-lutein 250 mcg tablet ([employer] Senior) carbamazepine 200 mg tablet 200 mg PO Q12H #60 tabs 06/20/20 03/24/24 Rx (Tegretol) empagliflozin 25 mg tablet 25 mg PO DAILY 09/20/20 03/24/24 History (Jardiance) icosapent ethyl 1 gram capsule 1 g PO BID 09/20/20 03/24/24 History (Vascepa) losartan 100 mg tablet 100 mg PO DAILY 09/20/20 03/24/24 History tadalafil 20 mg tablet (Cialis) 20 mg PO DAILY PRN sexual activity 02/22/21 03/24/24 Rx #10 tabs rosuvastatin 10 mg tablet (Crestor) 20 mg (2 x 10 mg) PO QAM 30 days 05/18/23 03/24/24 Rx #60 tabs modafinil 100 mg tablet 100 mg PO QAM 07/09/23 03/24/24 History glimepiride 1 mg tablet 4 mg (4 x 1 mg) PO BID #180 tabs 07/25/23 03/24/24 Rx amlodipine 10 mg tablet 10 mg PO DAILY #30 tabs 10/21/23 03/24/24 Rx metformin 500 mg tablet 1,000 mg (2 x 500 mg) PO BID #180 12/12/23 03/24/24 Rx tabs escitalopram oxalate 20 mg tablet 20 mg PO DAILY #30 tabs 12/26/23 03/24/24 Rx nebivolol 5 mg tablet 5 mg PO DAILY 03/16/24 03/24/24 History tirzepatide 2.5 mg/0.5 mL 2.5 mg subcut WEEKLY 03/16/24 03/16/24 History subcutaneous pen injector (Mounjaro) Allergies Allergy/AdvReac Type Severity Reaction Status Date / Time No Known Allergies Allergy Verified 03/24/24 07:15 Vital Signs Vital Signs - 24 hr 03/24/24 07:23 Temperature 97 F L Pulse Rate 79 Respiratory Rate 16 Blood Pressure 131/73 Pulse Oximetry 99 Oxygen Delivery Room Air Exam Const: General: comfortable and no acute distress HENMT: Face/Nose/Sinus: Normal nares present Eyes: General: appearance normal, both eyes and all related structures Neck: Neck: no JVD Resp: Auscultation: clear to auscultation bilaterally Cardio: Rate: regular rate Rhythm: regular rhythm GI: Inspection: non-distended GI Palp: Yes Soft to palpation Skin: General skin exam: normal color Neuro: General: gait normal Speech: normal speech Extrem: General: normal to inspection Psych: Mental Status: mental status grossly normal Assessment and Plan Assessment and plan (1) Colon cancer screening: Code(s): Z12.11 - Encounter for screening for malignant neoplasm of colon Status: Acute Assessment and Plan: colonoscopy
--- NOTE | 2024-03-24 07:52 | P.PNAN_ITS ---
Anes - Initial Pre Proc Eval Procedure: Operation Date: 03/24/24 08:00 Proposed Procedures p Screening Colonoscopy - Eliseo Vasquez MD Date/Time: 03/24/24 07:52 Surgeon: Eliseo Vasquez MD Pre Op Diagnosis: Neoplasm screening Patient Data Age: 48 Gender: M Height: 1.88 m Weight: 120.3 kg Last Vital Signs Temp 36.1 C L 03/24/24 07:23 Pulse 79 03/24/24 07:23 Resp 16 03/24/24 07:23 BP 131/73 03/24/24 07:23 Pulse Ox 99 03/24/24 07:23 O2 Del Method Room Air 03/24/24 07:23 Allergies Allergy/AdvReac Type Severity Reaction Status Date / Time No Known Allergies Allergy Verified 03/24/24 07:15 Home Medications ?Medication ?Instructions ?Recorded ?Confirmed ?Type aspirin 81 mg chewable tablet 81 mg PO DAILY@0800 #30 tabs 10/27/19 03/24/24 Rx (Children's Aspirin) qekngvki-xqz-afscv acid 0.4 1 tab PO HS 30 days 10/27/19 03/24/24 Rx mg-lycopene 300 mcg-lutein 250 mcg tablet ([employer] Senior) carbamazepine 200 mg tablet 200 mg PO Q12H #60 tabs 06/20/20 03/24/24 Rx (Tegretol) empagliflozin 25 mg tablet 25 mg PO DAILY 09/20/20 03/24/24 History (Jardiance) icosapent ethyl 1 gram capsule 1 g PO BID 09/20/20 03/24/24 History (Vascepa) losartan 100 mg tablet 100 mg PO DAILY 09/20/20 03/24/24 History tadalafil 20 mg tablet (Cialis) 20 mg PO DAILY PRN sexual activity 02/22/21 03/24/24 Rx #10 tabs rosuvastatin 10 mg tablet (Crestor) 20 mg (2 x 10 mg) PO QAM 30 days 05/18/23 03/24/24 Rx #60 tabs modafinil 100 mg tablet 100 mg PO QAM 07/09/23 03/24/24 History glimepiride 1 mg tablet 4 mg (4 x 1 mg) PO BID #180 tabs 07/25/23 03/24/24 Rx amlodipine 10 mg tablet 10 mg PO DAILY #30 tabs 10/21/23 03/24/24 Rx metformin 500 mg tablet 1,000 mg (2 x 500 mg) PO BID #180 12/12/23 03/24/24 Rx tabs escitalopram oxalate 20 mg tablet 20 mg PO DAILY #30 tabs 12/26/23 03/24/24 Rx nebivolol 5 mg tablet 5 mg PO DAILY 03/16/24 03/24/24 History tirzepatide 2.5 mg/0.5 mL 2.5 mg subcut WEEKLY 03/16/24 03/16/24 History subcutaneous pen injector (Mounjaro) Laboratory Tests 03/24/24 07:00 POC Capillary Glucose 136 H mg/dl (65-105) Patient hx anesthesia problems: none Family hx anesthesia problems: none Results Review: All pre-operative results and documents have been reviewed as part of the pre- operative evaluation. [facility] Past Medical History Medical History Colon cancer screening Colon polyp Insomnia Sinus tachycardia seen on flume maker SERENA (obstructive sleep apnea) noncomplaint Normal colonoscopy (~2015) HLD (hyperlipidemia) Anxiety Diabetes Hypertension Surgical History Surgical History No pertinent past surgical history Family History Family History Father Hypertension Diabetes mellitus Heart disease Hyperlipidemia Other malignant neoplasm without specification of site Grandparent Carcinoma of colon Mother Hyperlipidemia Hypertension Diabetes mellitus Heart disease Sibling Diabetes mellitus Rheumatoid arthritis Social History Social History Social History: Patient is lifelong nonsmoker. No drug use. Rare alcohol use. He is a full code. Nominates his to be the individual would make medical decisions for him if he is not able. Smoking status: Never smoker Second hand tobacco smoke exposure: No Alcohol intake: never Substance use: never Substance use type: does not use Living arrangements: with family Gender identity (if verbalized by the patient): Male Spiritual care concerns: No Anes - Eval Final PreProcedure Day of Procedure 03/24/24 07:52 Patient weight: obese Heart: regular rate and rhythm Lungs: clear to auscultation Airway: Mallampati scale class II Neurological: alert and oriented Last oral intake: >/= 8 hours ASA classification: III Emergent: no Anesthetic plan: proceed Anesthesia type and monitoring: general GIVS and standard monitoring Results Review: All pre-operative results and documents have been reviewed as part of the pre- operative evaluation. Informed Consent: The patient's anesthetic plan and its attendant risks and benefits were discussed with the patient/family/POA. Questions were solicited and answers provided to the satisfaction of the patient/family/POA.
[2024-03-24 08:03] VITALS: BP 100/67; PULSE 75; RESP 16; O2SAT 99
[2024-03-24 08:13] VITALS: BP 104/70; PULSE 72; RESP 16; O2SAT 99
[2024-03-24 08:21] VITALS: BP 104/70; PULSE 71; RESP 16; O2SAT 99
== END 2024-03-24 08:36 | disposition home or self-care (01) ==
PROVIDERS: PCP Family Medicine; Visit Provider Internal Medicine Gastroenterology
PROC: 0DJD8ZZ Inspection of Lower Intestinal Tract, Via Natural or Artificial Opening Endoscopic (ICD-10-PCS; CPT 45378; principal; 2024-03-24 08:00)
DX: Z12.11 Encounter for screening for malignant neoplasm of colon (principal); D12.2 Benign neoplasm of ascending colon; D12.5 Benign neoplasm of sigmoid colon; K64.8 Other hemorrhoids; K57.30 Diverticulosis of large intestine without perforation or abscess without bleeding; E78.5 Hyperlipidemia, unspecified; E11.9 Type 2 diabetes mellitus without complications; I10 Essential (primary) hypertension; G47.00 Insomnia, unspecified; G47.33 Obstructive sleep apnea (adult) (pediatric); F41.9 Anxiety disorder, unspecified; E66.9 Obesity, unspecified; Z68.34 Body mass index [BMI] 34.0-34.9, adult; Z79.82 Long term (current) use of aspirin; Z79.84 Long term (current) use of oral hypoglycemic drugs; Z79.85 Long-term (current) use of injectable non-insulin antidiabetic drugs; Z80.9 Family history of malignant neoplasm, unspecified; Z82.49 Family history of ischemic heart disease and other diseases of the circulatory system
CPT/HCPCS: 45385; 82948; 88305; J2704; J7120